=== PATIENT | male | born 1960 | race Caucasian/White ===

== ENCOUNTER 2020-03-01 15:05 | Inpatient (IN) | payer OTHER, MEDICAID, SELFPAY ==
[~2020-03-01] VITALS: Ht 172.7 cm; Wt 86.2 kg
[~2020-03-01 15:05] MED LIST: CAT.1 PO; CEFAZOLIN 1 GM IVPB PREMIX 50 ML IV ONE; CLON0.5T4 PO; DEPAKOTE DR PO; LIDOCAINE 1% 10 MG/ML, 20 ML MDV INJ ONE; LIP40 PO; LOSA25TA3 PO; METO25TA6 PO; MIDAZOLAM HCL 5 MG/5 ML VIAL IVP ONE; MULT-1089 PO; NEPH PO; NOR10 PO; NS 1000 ML IV.SOLN IV ONE; PHO667 PO; PLAVIX PO; PROPOFOL 200MG/ 20ML VIAL (DIPRIVAN) IV ONE; REN800 PO; SER25 PO; SEVOFLURANE 15 MIN GAS INH ONE; VITD400 PO; ZETIA PO; fentaNYL CITRATE/PF 100 MCG/2 ML AMP IVP ONE
[2020-03-01 15:19] VITALS: BP_SYST 160
--- NOTE | 2020-03-01 15:19 | NUR ---
Patient to ER bed 07 to gown for evaluation. Side rails up. Report given to FLACO Hsu
--- NOTE | 2020-03-01 15:30 | NUR ---
Patient presented to ER C/O abnormal labs. Patient BIB BLS to ER, A&Ox3, afebrile, skin pink and warm, denies pain, denies N/V/D. Per EMS Patient sent by Dr. Ang for emergent dialysis
[2020-03-01 16:15] LABS: BASOPHILS % (AUTO) 0.3 % (0.0-2.0); EOSINOPHILS # (AUTO) 0.2 K/uL (0.0-0.4); EOSINOPHILS % (AUTO) 2.2 % (0.0-4.0); LYMPHOCYTES # (AUTO) 1.7 K/uL (1.0-5.5); LYMPHOCYTES % (AUTO) 20.1 % (20.5-51.5); MEAN CORPUSCULAR HEMOGLOBIN 34 pg (27-31); MEAN CORPUSCULAR HGB CONC 35 % (32-36); MEAN CORPUSCULAR VOLUME 97 fL (79.0-98.0); NEUTROPHILS # (AUTO) 5.5 K/uL (1.8-7.7); NEUTROPHILS % (AUTO) 65.4 % (40.0-70.0); PLATELET COUNT (AUTO) 133 K/uL (130-430); RED CELL DISTRIBUTION WIDTH 14.4 % (9.0-15.0); WHITE BLOOD COUNT (AUTO) 8.3 K/uL (4.8-10.8)
--- NOTE | 2020-03-01 16:15 | NUR ---
# 20 gauge angiocath placed to LEFT AC. Use of asceptic technique. Opsite placed over site. Blood return noted. Blood for lab drawn from site. Flushed with 10 cc of normal saline. No evidence of infiltration noted. Patient tolerated well.
--- NOTE | 2020-03-01 16:35 | NUR ---
PT YELLING, REORIENTED
[2020-03-01 16:37] LABS: HEMOGLOBIN 6.5 g/dL (14.0-18.0)
[2020-03-01 16:38] LABS: HEMATOCRIT 18.5 % (36-54)
--- NOTE | 2020-03-01 16:45 | NUR ---
ER at bedside examining patient.
--- NOTE | 2020-03-01 16:48 | NUR ---
PT continues to yell, agressive and cursing. re-oriented. Pt states "I don't want to be here today"
[2020-03-01] MEDS ORDERED: LORazepam 2 MG/ML VIAL IVP ONE (17:00)
[2020-03-01 17:19] LABS: POTASSIUM 5.3 mmol/L (3.5-5.1)
[2020-03-01 17:31] LABS: TOTAL BILIRUBIN 0.2 mg/dL (0.0-1.0)
[2020-03-01 17:32] LABS: ALBUMIN 2.3 g/dL (3.4-4.8)
[2020-03-01 17:33] LABS: CREATININE 13.28 mg/dL (0.55-1.30)
--- NOTE | 2020-03-01 17:50 | NUR ---
TELE BED REQUESTED TEZ SAM
[2020-03-01] MEDS ORDERED: SODI650T PO (18:14)
[2020-03-01] MEDS ORDERED: VITD2000 PO (18:14)
--- NOTE | 2020-03-01 19:00 | NUR ---
Medication reconciliation completed with information provided by DRAGAN SAM. Any prior medication reconciliation on file was reviewed and corrected.
--- NOTE | 2020-03-01 19:08 | NUR ---
REPORT TO KENAN SAM
--- NOTE | 2020-03-01 19:16 | NUR ---
REPORT RECEIEVED FROM FLACO CHURCHILL FOR CONTINUING CARE
--- NOTE | 2020-03-01 20:23 | NUR ---
APatient will be admitted to care of DR. PENNINGTON. Admitted to TELE unit. Will go to room 105A. Belongings list completed. Complete and up to date summary report printed. SBAR report to be given at bedside with opportunity for questions.
--- NOTE | 2020-03-01 20:42 | NUR ---
ADMISSION NOTE Received patient from ER via evette, received report from FLACO Carrera. Patient admitted with diagnosis of Renal Failure. Patient oriented to hospital routine, call light, toileting and safety-patient verbalized understanding.
[2020-03-01 20:56] VITALS: BP_SYST 197
[2020-03-01] MEDS: QUEtiapine FUMARATE 25 MG TABLET PO SCH (21:57)
--- NOTE | 2020-03-01 22:00 | NUR ---
Initial RN notes Received pt from ED. Pt AAOx3, afebrile. No s/s distress noted. IV saline lock L. AC 20G clear and patent. Pt provided w/ HS sandwich and ate well. Oriented to call light use. Bed low, locked, siderails up x3, bed alarm on. Call light within reach. To monitor.
[2020-03-01] MEDS: ATORVASTATIN 20 MG TABLET PO SCH (22:01)
[2020-03-01] MEDS: METOPROLOL TARTRATE 25 MG TABLET PO SCH (22:01)
[2020-03-01] MEDS: SODIUM BICARBONATE 650 MG TABLET PO SCH (22:02)
[2020-03-01 22:30] VITALS: BP_SYST 152
--- NOTE | 2020-03-01 22:58 | NUR ---
Called Called and spoke w/ Dr. Reid re H/H 6.5/18.5 and K+ 5.3. Order rec'd for Type & Screen and wait in AM. Will enter order.
--- NOTE | 2020-03-01 23:05 | NUR ---
Bathroom Pt assisted to bathroom, pt voided. Pt asking for salad, informed pt cafeteria is closed already. Call light within reach. Bed low, locked, siderails up, alarm on. To monitor.
--- NOTE | 2020-03-01 23:57 | NUR ---
Consultation Paged Reason for Consultation: Renal Failure Was consult called: Y Person who was notified: Madhavi Consulting Physician: Dr. Delaney Ordering Physician: Dr. Ray
--- NOTE | 2020-03-02 02:18 | NUR ---
Rounds Pt asleep, respirations even and unlabored. Call light within reach. Bed low, locked, siderails up x3, alarm on. To monitor.
--- NOTE | 2020-03-02 04:00 | NUR ---
Bathroom Pt awake, assisted pt to the bathroom. Pt voided. Assisted back to bed. Pt oriented to time. Bed low, locked, siderails up x3, alarm on. To monitor.
--- NOTE | 2020-03-02 05:30 | NUR ---
Closing notes Pt awake, alert, no s/s distress. IV saline locked L. AC clear and patent. Call light within reach. Bed maintained low, locked, siderails up x3, alarm on. Safety maintained. To monitor.
[2020-03-02] MEDS: SODIUM BICARBONATE 650 MG TABLET PO SCH ×2 (06:05→14:00)
[2020-03-02 07:50] VITALS: BP_SYST 186
--- NOTE | 2020-03-02 08:00 | NUR ---
am notes pt a/ox1. denies any karen or orther discomfort. res even and unlabored. assisted to bathroom. safety and fall precautions in place. call light within reach. bed in low and locked positions pt eating breakfast not in acute distress. will continue tomonitor.
[2020-03-02] MEDS: CALCIUM ACETATE 667 MG CAP PO SCH ×3 (08:42→18:00)
[2020-03-02] MEDS: SEVELAMER CARBONATE 800 MG TABLET PO SCH ×3 (08:42→18:00)
[2020-03-02] MEDS: QUEtiapine FUMARATE 25 MG TABLET PO SCH (08:43)
[2020-03-02] MEDS: METOPROLOL TARTRATE 25 MG TABLET PO SCH (08:43)
[2020-03-02] MEDS: amLODIPine BESYLATE 10 MG TABLET PO SCH (08:43)
[2020-03-02] MEDS: LOSARTAN POTASSIUM 25 MG TABLET PO SCH (08:44)
[2020-03-02] MEDS ORDERED: EPOETIN ALFA 20,000 UNITS/ML VIAL SUBCUT ONE (09:15)
[2020-03-02] MEDS ORDERED: TUBERCULIN,PURIF.PROT.DERIV. 0.1 ML SYR ID ONE (09:15)
[2020-03-02] MEDS ORDERED: FERROUS SULFATE 325 MG TABLET.DR PO ONE (09:30)
--- NOTE | 2020-03-02 09:45 | NUR ---
md navast dr villeda and dr zaldivar at bed side. pt got upset after talking with dr zaldivar.
--- NOTE | 2020-03-02 09:54 | NUR ---
CONSULT SURGERY HD CATHETER PATTI HUBBARD [phone] S/W [facility] OFFICE
--- NOTE | 2020-03-02 10:24 | NUR ---
CONSULT PSYCH [address] DR BOLAND [phone] [place] FAXED TO OFFICE [phone] S/W GIBRAN HERNANDEZ
--- NOTE | 2020-03-02 12:34 | NUR ---
md visit dr villeda here informed that pt is refusing vitals signs and his medications.
--- NOTE | 2020-03-02 13:34 | NUR ---
HIGH ALERT NOTE: Called Dr. CONDE back at [phone] identified within the medical roster to verify physician authenticity FOR HEPARIN ORDER.
[2020-03-02] MEDS ORDERED: HEPARIN SODIUM,PORCINE 5,000 UNITS/ML VIAL IV ONE (13:45)
[2020-03-02] MEDS: FERROUS SULFATE 325 MG TABLET.DR PO SCH (15:00)
[2020-03-02 15:33] LABS: PLATELET COUNT (AUTO) 121 K/uL (130-430); RED CELL DISTRIBUTION WIDTH 14.1 % (9.0-15.0); WHITE BLOOD COUNT (AUTO) 7.3 K/uL (4.8-10.8)
[2020-03-02 15:37] LABS: BASOPHILS # (AUTO) 0.1 K/uL (0.0-0.2); BASOPHILS % (AUTO) 0.8 % (0.0-2.0); EOSINOPHILS # (AUTO) 0.3 K/uL (0.0-0.4); EOSINOPHILS % (AUTO) 3.5 % (0.0-4.0); LYMPHOCYTES # (AUTO) 2.1 K/uL (1.0-5.5); LYMPHOCYTES % (AUTO) 28.6 % (20.5-51.5); MEAN CORPUSCULAR HEMOGLOBIN 33 pg (27-31); MEAN CORPUSCULAR HGB CONC 34 % (32-36); MEAN CORPUSCULAR VOLUME 97 fL (79.0-98.0); MONOCYTES % (AUTO) 13.7 % (1.7-9.3); NEUTROPHILS # (AUTO) 3.9 K/uL (1.8-7.7); NEUTROPHILS % (AUTO) 53.4 % (40.0-70.0)
[2020-03-02 15:45] VITALS: BP_SYST 157
[2020-03-02 15:46] LABS: RED BLOOD CELL COUNT(AUTO) 1.83 MIL/uL (4.2-6.2)
[2020-03-02 15:47] LABS: CALCIUM 8.3 mg/dL (8.4-11.0)
[2020-03-02 15:49] LABS: HEMATOCRIT 17.7 % (36-54)
[2020-03-02 15:52] LABS: ALBUMIN 2.2 g/dL (3.4-4.8); TOTAL BILIRUBIN 0.2 mg/dL (0.0-1.0)
[2020-03-02 16:02] LABS: POTASSIUM 6.4 mmol/L (3.5-5.1)
[2020-03-02 16:05] LABS: CREATININE 14.05 mg/dL (0.55-1.30)
--- NOTE | 2020-03-02 16:26 | NUR ---
PAGED DR HANNAH PENNINGTON SPOKE TO PITO
--- NOTE | 2020-03-02 16:47 | NUR ---
DR YOUNG PAGED DR MENENDEZ SPOKE TO
[2020-03-02] MEDS ORDERED: INSULIN REGULAR, HUMAN 100 UNITS/ML, 10 ML VIAL IVP ONE (17:00)
[2020-03-02] MEDS ORDERED: SODIUM BICARBONATE 8.4% JECT 50 MEQ/50 ML SYRINGE IVP ONE (17:00)
[2020-03-02] MEDS ORDERED: DEXTROSE 50% JECT 50 ML DISP.SYRIN IVP ONE (17:00)
[2020-03-02] MEDS: CLOPIDOGREL BISULFATE 75 MG TABLET PO SCH (17:00)
--- NOTE | 2020-03-02 17:05 | NUR ---
called called dr zaldivar and notified k 6.3 ,. new order received called out. pt stable not in acute distress.
--- NOTE | 2020-03-02 17:15 | NUR ---
called dl ley conservator [phone] left voice mail. called orther no [phone] it was continue ringing.did not go to voice mail
--- NOTE | 2020-03-02 18:00 | NUR ---
transferred to or pt transferred to or in stab le condition. report given to yayo.by charge nurse bertha
[2020-03-02] MEDS ORDERED: MIDAZOLAM HCL 5 MG/5 ML VIAL IVP ONE (18:30)
[2020-03-02] MEDS ORDERED: fentaNYL CITRATE 250 MCG/5 ML AMP IV ONE (18:30)
[2020-03-02] MEDS ORDERED: NS 100 ML BAG IV ONE (18:30)
[2020-03-02] MEDS ORDERED: METOCLOPRAMIDE HCL 10 MG/2 ML VIAL IVP ONE (18:30)
[2020-03-02] MEDS ORDERED: LIDOCAINE 1% 10 MG/ML, 20 ML MDV INJ ONE (18:30)
[2020-03-02] MEDS ORDERED: ONDANSETRON HCL 4 MG/2 ML VIAL IVP ONE (18:30)
[2020-03-02] MEDS ORDERED: NS 50 ML BAG IV ONE (18:30)
[2020-03-02] MEDS ORDERED: NS IRRIG SOLN 1000 ML IR ONE (18:30)
[2020-03-02] MEDS ORDERED: HEPARIN SODIUM, PORCINE 10,000 UNITS/ 10 ML VIAL MC ONE (18:30)
[2020-03-02 19:06] LABS: CALCIUM 8.2 mg/dL (8.4-11.0); POTASSIUM 5.6 mmol/L (3.5-5.1)
[2020-03-02 19:16] LABS: CREATININE 14.04 mg/dL (0.55-1.30)
[2020-03-02] MEDS ORDERED: NACL 0.9% 1,000 ML IV SCH (19:45)
[2020-03-02] MEDS ORDERED: HYDROmorphone 1 MG INJ. 1 MG/ML AMPUL IVP PRN (19:45)
[2020-03-02] MEDS ORDERED: ONDANSETRON HCL 4 MG/2 ML VIAL IVP PRN (19:45)
[2020-03-02] MEDS ORDERED: LORazepam 2 MG/ML VIAL IVP PRN (20:00)
--- NOTE | 2020-03-02 20:00 | NUR ---
HIGH ALERT NOTE: Called Dr. Delaney back at [phone] identified within the medical roster to verify physician authenticity for Ativan 1mg IVP order.
--- NOTE | 2020-03-02 20:15 | NUR ---
Opening notes/Back from PACU Received pt AAOx3, no c/o pain, no distress noted. S/P right IJ dillon catheter placement. Dressing R. IJ c/d/i. Pt received 1 unit PRBC in PACU. L. hand 18G IV salined locked clear and patent. Pt assisted to the bathroom and pt voided. Call light within reach. Pt provided bedtime snack per pt request. Bed low, locked, siderails up x3, alarm on. To monitor.
--- NOTE | 2020-03-02 20:49 | NUR ---
Called and spoke w/ Called and spoke with Dr. Paredes and received order for Ok to use right IJ catheter for hemodialysis.
--- NOTE | 2020-03-02 20:53 | NUR ---
Hemodialysis HD nurse at bedside. Pt stable condition. Rec'd t/o from Dr. Reggie archibald to use right IJ catheter for dialysis.
--- NOTE | 2020-03-02 23:00 | NUR ---
Dialysis finished 3L out per HD nurse. R. IJ catheter dressing C/D/I.
[2020-03-03] MEDS: ATORVASTATIN 20 MG TABLET PO SCH ×2 (00:42→21:54)
[2020-03-03] MEDS: SODIUM BICARBONATE 650 MG TABLET PO SCH ×4 (00:42→21:51)
[2020-03-03] MEDS: FERROUS SULFATE 325 MG TABLET.DR PO SCH ×5 (00:42→21:51)
[2020-03-03] MEDS: QUEtiapine FUMARATE 25 MG TABLET PO SCH ×3 (00:43→21:51)
[2020-03-03] MEDS: METOPROLOL TARTRATE 25 MG TABLET PO SCH ×3 (00:44→21:51)
--- NOTE | 2020-03-03 03:15 | NUR ---
Rounds/Bathroom Pt awake, assisted to bathroom, pt voided. Rt IJ catheter dressing C/D/I. Call light within reach. Bed low, locked, siderails up x3, alarm on. To monitor.
[2020-03-03 05:49] VITALS: BP_SYST 167
--- NOTE | 2020-03-03 06:15 | NUR ---
Closing notes Pt alert, awake, no c/o pain, no distress noted. Right IJ dillon catheter dressing c/d/i. L. hand 18G IV saline locked clear and patent. Encouraged pt to use call light for nurse, call light within reach. Bed low, locked, siderails up x3, alarm on. To endorse to Am nurse.
--- NOTE | 2020-03-03 07:39 | NUR ---
Opening Note received bedside SBAR report from night shift supervisor RN, patient resting in bed, respirations even and unlabored on room air, no acute distress noted, room close to nurses station, educated patient on use of call light and asked to call for assistance, patient verbalized understanding, call light in reach, bed in low and locked position, bed alarm on.
[2020-03-03 08:00] VITALS: BP_SYST 158
[2020-03-03] MEDS: CALCIUM ACETATE 667 MG CAP PO SCH ×4 (08:00→17:24)
[2020-03-03] MEDS: SEVELAMER CARBONATE 800 MG TABLET PO SCH ×4 (08:00→17:24)
[2020-03-03] MEDS: amLODIPine BESYLATE 10 MG TABLET PO SCH (08:14)
[2020-03-03] MEDS: LOSARTAN POTASSIUM 25 MG TABLET PO SCH (08:15)
--- NOTE | 2020-03-03 08:40 | NUR ---
Nutrition Update Maxi scale 18 noted. Pt admitted for Renal Failure Diet: Regular, Renal Standard, Mechanical Soft Diet BMI: 28.9 kg/m2 RD to follow per nutrition care standards.
--- NOTE | 2020-03-03 09:20 | NUR ---
Breakfast patient requesting additional breakfast food, called dietary, dietary provided patient with additional breakfast food within patients diet order, patient sitting up in bed eating breakfast, tolerating well.
[2020-03-03 09:56] LABS: BASOPHILS # (AUTO) 0.1 K/uL (0.0-0.2); BASOPHILS % (AUTO) 1.1 % (0.0-2.0); EOSINOPHILS # (AUTO) 0.2 K/uL (0.0-0.4); HEMATOCRIT 24.3 % (36-54); HEMOGLOBIN 8.3 g/dL (14.0-18.0); LYMPHOCYTES # (AUTO) 1.8 K/uL (1.0-5.5); MEAN CORPUSCULAR HEMOGLOBIN 32 pg (27-31); MEAN CORPUSCULAR HGB CONC 34 % (32-36); MEAN CORPUSCULAR VOLUME 94 fL (79.0-98.0); MONOCYTES # (AUTO) 1.3 K/uL (0.0-1.0); MONOCYTES % (AUTO) 15.3 % (1.7-9.3); NEUTROPHILS # (AUTO) 4.8 K/uL (1.8-7.7); NEUTROPHILS % (AUTO) 58.6 % (40.0-70.0); PLATELET COUNT (AUTO) 143 K/uL (130-430); RED BLOOD CELL COUNT(AUTO) 2.59 MIL/uL (4.2-6.2); RED CELL DISTRIBUTION WIDTH 15.4 % (9.0-15.0); WHITE BLOOD COUNT (AUTO) 8.2 K/uL (4.8-10.8)
[2020-03-03 09:58] LABS: CALCIUM 8.8 mg/dL (8.4-11.0); POTASSIUM 5.4 mmol/L (3.5-5.1)
[2020-03-03 10:02] LABS: ALBUMIN 2.4 g/dL (3.4-4.8); TOTAL BILIRUBIN 0.3 mg/dL (0.0-1.0)
--- NOTE | 2020-03-03 10:15 | NUR ---
Ambulating bed alarm heard, patient out of bed without calling for assistance, RN assisted immediately, patient shuffles with unsteady gait, patient ambulated to bathroom with assistance, patient voided x1, patient ambulated back to bed with assistance, patient resting in bed, reinforced fall prevention education, educated patient on use of call light and encouraged patient to call for assistance, patient verbalized understanding, call light in reach, bed in low and locked position, bed alarm on, room close to nurses station.
[2020-03-03 10:17] LABS: CREATININE 10.92 mg/dL (0.55-1.30)
--- NOTE | 2020-03-03 10:59 | NUR ---
Office of the public Guardian YVON Simpson from the office of the public guardian. Per Miss Simpson, Any procedure that needs consent that is not included in the court order, [facility] emergrncy procedure can be use
[2020-03-03 11:33] VITALS: BP_SYST 122
--- NOTE | 2020-03-03 12:12 | NUR ---
Hemodialysis handle maker Yared at bedside for start of hemodialysis, informed him of BP medication that were given this morning, understanding verbalized, handle maker starting hemodialysis, patient resting in bed, respirations even and unlabored on room air, no acute distress noted.
--- NOTE | 2020-03-03 12:41 | NUR ---
Dietitian Recommendations *Recommend continue Regular, Renal Standard, Mechanical Soft Diet Please see Nutrition Assessment for details. ERMA NELSON
--- NOTE | 2020-03-03 14:38 | NUR ---
Hemodialysis hemodialysis completed by radiologic technologist chief, 1.2L out, dialysis site dillon cath to right IJ clean, dry, and intact, no bleeding noted, per radiologic technologist chief Yared the dillon catheter is not working properly, he informed Dr. Delaney, per Dr. Delaney he will arrange for placement of permacath, patient resting in bed, respirations even and unlabored on room air, no acute distress noted, reinforced fall prevention and education, educated patient on use of call light and asked to call for assistance, patient verbalized understanding, call light in reach, bed in low and locked position, bed alarm on.
[2020-03-03 14:45] VITALS: BP_SYST 121
[2020-03-03 15:49] VITALS: BP_SYST 126
--- NOTE | 2020-03-03 16:50 | NUR ---
Bathroom bed alarm heard, patient attempting to ambulate without assistance, assisted patient immediately, patient shuffles with unsteady gait at times, assisted patient to the bathroom, patient voided x1, assisted patient back to bed, patient resting in bed, reinforced education on fall prevention and patient safety, patient verbalized understanding, encouraged patient to call for assistance, patient verbalized understanding, call light in reach, bed in low and locked position, bed alarm on, room close to nurses station.
[2020-03-03] MEDS: CLOPIDOGREL BISULFATE 75 MG TABLET PO SCH (17:23)
--- NOTE | 2020-03-03 19:17 | NUR ---
Closing Note bedside SBAR report given to receiving RN, patient resting in bed, respirations even and unlabored on room air, no acute distress noted, room close to nurses station, educated patient on use of call light and asked to call for assistance, patient verbalized understanding, call light in reach, bed in low and locked position, bed alarm on, care endorsed to steward/stewardess night RN.
[2020-03-03 20:00] VITALS: BP_SYST 155
--- NOTE | 2020-03-03 20:39 | NUR ---
OPENING NOTES: Received report from [facility] nurse. He is laying in bed alert and oriented with no s/s of distress or discomfort. He does not have any concerns at this time. Dialysis noted on right upper chest, dry and intact dressing. Patient has unlabored breathing on room air. Ensured all safety precautions. Bed is locked and in the lowest position with alarm on, call light within reach. Addendum: 03/03/20 at 2042 by Jess Russell RN ADDENDUM TO TIME. RECEIVED REPORT AT 0.
--- NOTE | 2020-03-03 21:45 | NUR ---
MEDICATION ADMINISTRATION: Patient is laying in bed with no s/s of distress or discomfort. He does not have any complaints of pain or discomfort. Medications were administered as ordered, he tolerated well. Patient is requesting to have jello and a sandwich which were provided. Also assisted patient to the bathroom at this time. He has steady gait but shuffles his feet when walking. Assisted patient back to bed and reminded patient to use call light when needing to get out of bed, he verbalized understanding. Bed is in the lowest position with alarm on. Call light within reach. Will continue to monitor patient.
--- NOTE | 2020-03-04 | NUR ---
RN ROUNDS: Patient is laying in bed and appears to be asleep. He does not have any s/s of distress or discomfort. Will continue to monitor patient.
--- NOTE | 2020-03-04 02:00 | NUR ---
RN ROUNDS: Patient is in bed and continues to be asleep. He has unlabored breathing on room air. Bed is in the lowest position with alarm on, call light within reach. Will continue to monitor patient.
[2020-03-04 04:06] LABS: HEPATITIS B SURFACE AG Negative (Negative)
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
[2020-03-04] MEDS: SODIUM BICARBONATE 650 MG TABLET PO SCH ×3 (06:46→20:55)
[2020-03-04 07:46] LABS: CALCIUM 8.1 mg/dL (8.4-11.0); POTASSIUM 5.5 mmol/L (3.5-5.1)
--- NOTE | 2020-03-04 07:46 | NUR ---
CLOSING NOTE: Patient is laying in bed alert and oriented with no s/s of distress or discomfort. He does not have any concerns at this time. Bogdan right upper chest, dry and intact dressing. Patient has unlabored breathing on room air. All needs were met throughout shift. Will endorse to dayshift nurse. Ensured all safety precautions. Bed is locked and in the lowest position with alarm on, call light within reach.
[2020-03-04 07:50] VITALS: BP_SYST 187
[2020-03-04 07:57] LABS: CREATININE 10.42 mg/dL (0.55-1.30)
[2020-03-04] MEDS: QUEtiapine FUMARATE 25 MG TABLET PO SCH ×2 (08:25→20:55)
[2020-03-04] MEDS: FERROUS SULFATE 325 MG TABLET.DR PO SCH ×3 (08:25→20:55)
[2020-03-04] MEDS: SEVELAMER CARBONATE 800 MG TABLET PO SCH ×3 (08:25→17:15)
[2020-03-04] MEDS: CALCIUM ACETATE 667 MG CAP PO SCH ×3 (08:25→17:15)
[2020-03-04] MEDS: amLODIPine BESYLATE 10 MG TABLET PO SCH (08:26)
[2020-03-04] MEDS: LOSARTAN POTASSIUM 25 MG TABLET PO SCH (08:27)
[2020-03-04] MEDS: METOPROLOL TARTRATE 25 MG TABLET PO SCH ×2 (08:27→20:56)
[2020-03-04] MEDS ORDERED: SODIUM POLYSTYRENE SULFONATE 15 GM/60 ML UDBTL PO ONE (08:45)
--- NOTE | 2020-03-04 10:34 | NUR ---
REQUEST UNIT SEC TO PAGE DR CONDE FOR PERMACATH PLACEMENT.
--- NOTE | 2020-03-04 11:05 | NUR ---
DR SOTELO BACKMD MADE AWARE THAT DR DURAN WANTS HIM TO PLACE A PERMACATH, DR CONDE SAID HE WILL TRY TO DO IT TOMORROW.
[2020-03-04 12:00] VITALS: BP_SYST 156
[2020-03-04 14:40] LABS: HEPATITIS C VIRUS AB 7.6 s/co ratio (0.0-0.9)
[2020-03-04 16:19] VITALS: BP_SYST 156
[2020-03-04] MEDS: CLOPIDOGREL BISULFATE 75 MG TABLET PO SCH (17:15)
--- NOTE | 2020-03-04 18:33 | NUR ---
closing notes, pt has been stable the whole shift, no c/o pain, ppd test is negative, pt took all his am meds, sometimes refused them but with some encouragement took them anyway. pt wanted to go back to his facility , explained to pt that he needs permacath place in the morning and after that he can have dialysis and then can be send back, pt needs futher instruction. pt needs to be npo after midnight for permcath placement. will endorse to night nurse.
--- NOTE | 2020-03-04 19:30 | NUR ---
CHANGE OF SHIFT; pt. sleeping when received, no distress. pt. room close to nurses station. call light at bedside.
[2020-03-04 20:15] VITALS: BP_SYST 173
--- NOTE | 2020-03-04 20:15 | NUR ---
NOTES: pt. awakened, VS checked. pt. asking for food, given sandwich ,jello and juice. informed about possible permacath insertion and will be NPO after midnight. rt. jug dillon cath intact with dressing. 2 IV sites on left arm. on cardiac cath technician and shows sinus rhythm. able to move all extremities. denies any pain nor discomfort. on fall risk precaution.
[2020-03-04] MEDS: ATORVASTATIN 20 MG TABLET PO SCH (20:55)
--- NOTE | 2020-03-04 21:00 | NUR ---
NOTES: due medications taken well, able to swallow ok.
--- NOTE | 2020-03-04 22:44 | NUR ---
NOTES: pt. got out of bed without calling, able to ambulate to restroom and back to bed, bed alarm on, bed in low position. pt. room close to nurses station. Addendum: 03/04/20 at 2252 by Pema Resendiz RN Late entry; asking for food again , wants ice cream, no available ,pt. informed. given apple juice, had already some pudding.
--- NOTE | 2020-03-05 00:01 | NUR ---
NOTES: pt. checked and sleeping. kept NPO for schedule permacath placement today.
--- NOTE | 2020-03-05 00:30 | NUR ---
NOTES: pt. refused VS per RADIOLOGY TECHNOLOGIST Karla.
--- NOTE | 2020-03-05 02:40 | NUR ---
NOTES: pt. up and ambulated to the restroom. bed alarm went off. no distress, able to go back to bed and repositioned self. bed alarm turn back on.
--- NOTE | 2020-03-05 04:00 | NUR ---
NOTES: pt. up and ambulated to the restroom. bed alarm on.
--- NOTE | 2020-03-05 06:12 | NUR ---
NOTES: Dr. Delaney here, updated on pt. status and schedule placement of permacath @ 2 pm. pre op check list initiated. court order for in the chart, Dr. Delaney said it is sufficient for the consent, made aware of BP refusal at midnight.
--- NOTE | 2020-03-05 06:44 | NUR ---
CLOSING NOTES; pt. resting, arousable. kept NPO. IV lock ,flushed and patent. on sinus rhythm. endorsed to incoming shift. for placement of permacath for hemodialysis. rt. dillon cath intact. for further care and assistance. call light at bedside.
[2020-03-05 07:08] LABS: BASOPHILS # (AUTO) 0.1 K/uL (0.0-0.2); BASOPHILS % (AUTO) 0.6 % (0.0-2.0); EOSINOPHILS # (AUTO) 0.4 K/uL (0.0-0.4); EOSINOPHILS % (AUTO) 4.7 % (0.0-4.0); HEMATOCRIT 22.9 % (36-54); HEMOGLOBIN 7.8 g/dL (14.0-18.0); LYMPHOCYTES # (AUTO) 1.8 K/uL (1.0-5.5); LYMPHOCYTES % (AUTO) 20.4 % (20.5-51.5); MEAN CORPUSCULAR HEMOGLOBIN 33 pg (27-31); MEAN CORPUSCULAR HGB CONC 34 % (32-36); MEAN CORPUSCULAR VOLUME 95 fL (79.0-98.0); MONOCYTES # (AUTO) 1.2 K/uL (0.0-1.0); MONOCYTES % (AUTO) 13.9 % (1.7-9.3); NEUTROPHILS # (AUTO) 5.3 K/uL (1.8-7.7); NEUTROPHILS % (AUTO) 60.4 % (40.0-70.0); PLATELET COUNT (AUTO) 140 K/uL (130-430); RED BLOOD CELL COUNT(AUTO) 2.41 MIL/uL (4.2-6.2); RED CELL DISTRIBUTION WIDTH 15.1 % (9.0-15.0); WHITE BLOOD COUNT (AUTO) 8.8 K/uL (4.8-10.8)
[2020-03-05 07:22] LABS: ALBUMIN 2.4 g/dL (3.4-4.8); CALCIUM 8.2 mg/dL (8.4-11.0); POTASSIUM 5.7 mmol/L (3.5-5.1); TOTAL BILIRUBIN 0.2 mg/dL (0.0-1.0)
[2020-03-05 08:00] VITALS: BP_SYST 143
[2020-03-05 08:00] LABS: CREATININE 11.35 mg/dL (0.55-1.30)
[2020-03-05] MEDS: SEVELAMER CARBONATE 800 MG TABLET PO SCH ×3 (08:00→18:00)
[2020-03-05] MEDS: CALCIUM ACETATE 667 MG CAP PO SCH ×3 (08:00→18:00)
--- NOTE | 2020-03-05 08:00 | NUR ---
initial notes rec patient awake alert pt is npo for sx at 1400 today . npo maintained. resp easy and unlabored. no sob noted. bed to the lowest position and side rails up and locked. call light within reached.pt with rij dillon cath for dialysis. will continue to monitor patient.
[2020-03-05] MEDS: QUEtiapine FUMARATE 25 MG TABLET PO SCH ×2 (09:00→21:10)
[2020-03-05] MEDS: LOSARTAN POTASSIUM 25 MG TABLET PO SCH (09:00)
[2020-03-05] MEDS: FERROUS SULFATE 325 MG TABLET.DR PO SCH ×3 (09:00→21:10)
[2020-03-05] MEDS: METOPROLOL TARTRATE 25 MG TABLET PO SCH ×2 (09:00→21:10)
[2020-03-05] MEDS: amLODIPine BESYLATE 10 MG TABLET PO SCH (09:00)
--- NOTE | 2020-03-05 10:00 | NUR ---
rounds dialysis in progress. no sob noted. bed to the lowest position and side rails up and locked. call light within reached and close to the nurses station.
--- NOTE | 2020-03-05 11:15 | NUR ---
Discharge Planning: WIP faxed pt referral to [facility] (f [phone] p [phone]) patient out patient dialysis information [address] [address], P#[phone]. Patient Chair time Sun Ruma lu 4:15pm to 8:15pm, fist day will be Sunday03/09/2020. DCP made [facility] aware transportation needs to be scheduled for continuos visits. DCP to follow up. Addendum: 03/05/20 at 1432 by Lorenza Ivy DP DCP followed up with pt referral to [facility] (f [phone] p [phone]) admissions is waiting for the DON response. Addendum: 03/05/20 at 1434 by Lorenza Ivy DP JOSEF gave CM number [phone] to [facility] admissions, JOSEF made CM aware. Addendum: 03/05/20 at 1502 by Lorenza Ivy DP JOSEF spoke to Pratibha at [facility] (f [phone] p [phone]) pt accepted. When nurse calls for report a room will be give, number to report [phone]. JOSEF made CM aware.
[2020-03-05 12:00] VITALS: BP_SYST 154
--- NOTE | 2020-03-05 14:15 | NUR ---
rounds pt was picked up for surgery via bed. npo was maintained. no osb noted. call light within reached.
[2020-03-05] MEDS ORDERED: MEPERIDINE HCL/PF 25 MG/ML DISP.SYRIN IVP PRN (15:15)
[2020-03-05] MEDS ORDERED: NACL 0.9% 1,000 ML IV SCH (15:15)
[2020-03-05] MEDS ORDERED: HYDROmorphone 1 MG INJ. 1 MG/ML AMPUL IVP PRN ×2 (15:15)
[2020-03-05] MEDS ORDERED: ONDANSETRON HCL 4 MG/2 ML VIAL IVP PRN (15:15)
[2020-03-05] MEDS ORDERED: MIDAZOLAM HCL 2 MG/2 ML VIAL (VERSED) IVP PRN (15:15)
--- NOTE | 2020-03-05 16:30 | NUR ---
rounds pt back from rr s/p placement of tunneled catheter. noted with a weight on the catheter. no bleeding noted. dr dale was called to find out for how long the weight will be.
[2020-03-05] MEDS: CLOPIDOGREL BISULFATE 75 MG TABLET PO SCH (17:00)
--- NOTE | 2020-03-05 19:20 | NUR ---
CHANGE OF SHIFT; pt. resting, watching tv when received. S/P placement of perma cath on rt. upper chest today.for hemodialysis access. pt. room close to nurses station, on fall risk. instructed to call if help needed. wants food.
[2020-03-05 20:00] VITALS: BP_SYST 149
--- NOTE | 2020-03-05 20:00 | NUR ---
NOTES: pt. denies any discomfort. IV lock on left arm.hand. refused IVF ordered post procedure. VS checked. cardiac technician shows sinus rhythm with BBB. moves all extremities. reminded to call if getting out of bed to go restroom. speech not clear but able to communicate verbally.
[2020-03-05] MEDS: ATORVASTATIN 20 MG TABLET PO SCH (21:10)
--- NOTE | 2020-03-05 21:10 | NUR ---
NOTES: due po meds given. had 2 servings of turkey sandwich, jello and pudding.
--- NOTE | 2020-03-05 23:00 | NUR ---
NOTES: pt. still awake, pretty quiet in is room. condition observed.
--- NOTE | 2020-03-06 01:30 | NUR ---
NOTES: pt. checked, sleeping at this time. bed alarm turn on for safety.
[2020-03-06 02:00] VITALS: BP_SYST 152
--- NOTE | 2020-03-06 03:00 | NUR ---
NOTES: pt. been sleeping, no distress. continue to monitor.
--- NOTE | 2020-03-06 05:00 | NUR ---
NOTES: pt. got out of bed and ambulated, FIXING CARPENTER stand by. no complaints manifested.
--- NOTE | 2020-03-06 06:43 | NUR ---
CLOSING NOTES; pt. went back to sleep. IV lock intact. permacath on rt. subclavian intact. for further care and assist. fall risk. call light within reach. possible discharge today.
[2020-03-06] MEDS: CALCIUM ACETATE 667 MG CAP PO SCH ×2 (08:43→12:24)
[2020-03-06] MEDS: QUEtiapine FUMARATE 25 MG TABLET PO SCH (08:43)
[2020-03-06] MEDS: LOSARTAN POTASSIUM 25 MG TABLET PO SCH (08:43)
[2020-03-06] MEDS: METOPROLOL TARTRATE 25 MG TABLET PO SCH (08:43)
[2020-03-06] MEDS: SEVELAMER CARBONATE 800 MG TABLET PO SCH ×2 (08:43→12:24)
[2020-03-06] MEDS: FERROUS SULFATE 325 MG TABLET.DR PO SCH (08:43)
[2020-03-06 08:44] VITALS: BP_SYST 166
[2020-03-06] MEDS: amLODIPine BESYLATE 10 MG TABLET PO SCH (08:44)
--- NOTE | 2020-03-06 09:00 | NUR ---
Mobility Patient ambulate with steady gait to bathroom no dizziness.
[2020-03-06 11:01] VITALS: BP_SYST 147
--- NOTE | 2020-03-06 11:02 | NUR ---
PAGED DR HANNAH CONDE SPOKE WITH RIMA
--- NOTE | 2020-03-06 11:17 | NUR ---
[employer] CUTTER MOTORSPORTS TECHNICIAN DR MUJICA WAS CALLED, RE: CLEARANCE TO DISCHARGE PT TO HOME. SPOKE TO FANY.
--- NOTE | 2020-03-06 12:00 | NUR ---
Report given to [facility] LVN/EREN with all the information , patient is aware regarding discharge and agreed left a voicemail message public guardian Jania Simpson. all belongings hand over to patient.
--- NOTE | 2020-03-06 12:06 | NUR ---
CM Note: per FLACO Crespo pt is cleared for discharge. [facility] ambulance, [facility] with Huma # [phone]. gravity prospecting supervisor time is at 1330. -- Cherie made aware.
[2020-03-06 12:17] VITALS: BP_SYST 147
--- NOTE | 2020-03-06 13:02 | NUR ---
With clearance for discharge from station helper and Dr. Paredes per NORMAN GAVIN
--- NOTE | 2020-03-06 13:36 | NUR ---
D/C Patient Patient given medication reconciliation form and D/C instructions. Exit Care provided. . discussed with patient the results and treatment provided. Ambulatory with steady gait for discharge to home. Patient in stable condition, ID band removed. IV catheter removed, intact and dressing applied, no active bleeding. continue home medication. All belongings sent with patient.
== END 2020-03-06 13:30 | DRG 673 ==
LOC: SED 15:05 → STU 17:49
PROVIDERS: ADMIT Internal Medicine Hospice and Palliative Medicine; ATTEND Internal Medicine Hospice and Palliative Medicine
PROC: B548ZZA Ultrasonography of Superior Vena Cava, Guidance (ICD-10-PCS; 2020-03-02)
PROC: 30233N1 Transfusion of Nonautologous Red Blood Cells into Peripheral Vein, Percutaneous Approach (ICD-10-PCS; 2020-03-02)
PROC: 5A1D70Z Performance of Urinary Filtration, Intermittent, Less than 6 Hours Per Day (ICD-10-PCS; 2020-03-02)
PROC: 02HV33Z Insertion of Infusion Device into Superior Vena Cava, Percutaneous Approach (ICD-10-PCS; principal; 2020-03-02 18:30)
PROC: 5A1D70Z Performance of Urinary Filtration, Intermittent, Less than 6 Hours Per Day (ICD-10-PCS; 2020-03-03)
PROC: 0JH63XZ Insertion of Tunneled Vascular Access Device into Chest Subcutaneous Tissue and Fascia, Percutaneous Approach (ICD-10-PCS; 2020-03-05)
PROC: 02HV33Z Insertion of Infusion Device into Superior Vena Cava, Percutaneous Approach (ICD-10-PCS; 2020-03-05)
PROC: B5181ZA Fluoroscopy of Superior Vena Cava using Low Osmolar Contrast, Guidance (ICD-10-PCS; 2020-03-05)
PROC: 02PAX3Z Removal of Infusion Device from Heart, External Approach (ICD-10-PCS; 2020-03-05)
DX: I12.0 Hypertensive chronic kidney disease with stage 5 chronic kidney disease or end stage renal disease (principal); N18.6 End stage renal disease; N17.9 Acute kidney failure, unspecified; E11.22 Type 2 diabetes mellitus with diabetic chronic kidney disease; F20.9 Schizophrenia, unspecified; Z20.828 Contact with and (suspected) exposure to other viral communicable diseases; F31.9 Bipolar disorder, unspecified; F41.9 Anxiety disorder, unspecified; Z79.899 Other long term (current) drug therapy; Z91.15 Patient's noncompliance with renal dialysis; Z99.2 Dependence on renal dialysis
CPT/HCPCS: 36415; 36430; 71045; 76000; 80048; 80053; 82550-TC; 82962; 83880; 84484; 85025; 86580; 86803; 86886; 86900; 86901; 86920; 87081; 87340; 90935; 90937; 93005; 94010; 96374; 99285; C1750; G0378; J0690; J0885; J1644; J1815; J2001; J2060; J2250; J2405; J2704; J2765; J3010; J7030; P9021

== ENCOUNTER 2020-03-11 11:50 | Inpatient (IN) | payer OTHER, MEDICAID, SELFPAY ==
[~2020-03-11] VITALS: Ht 172.7 cm; Wt 86.2 kg
[~2020-03-11 11:50] MED LIST changes: -CAT.1 PO; -CEFAZOLIN 1 GM IVPB PREMIX 50 ML IV ONE; -CLON0.5T4 PO; -LIDOCAINE 1% 10 MG/ML, 20 ML MDV INJ ONE; -MIDAZOLAM HCL 5 MG/5 ML VIAL IVP ONE; -MULT-1089 PO; -NS 1000 ML IV.SOLN IV ONE; -PROPOFOL 200MG/ 20ML VIAL (DIPRIVAN) IV ONE; -SEVOFLURANE 15 MIN GAS INH ONE; +SODI650T PO; +VITD2000 PO; -VITD400 PO; -fentaNYL CITRATE/PF 100 MCG/2 ML AMP IVP ONE
--- NOTE | 2020-03-11 12:00 | NUR ---
Patient to ER bed 7 to gown for evaluation. Side rails up. Report given to Keith SAM.
[2020-03-11 12:01] VITALS: BP_SYST 190
--- NOTE | 2020-03-11 12:05 | NUR ---
Pt bib EMS from [facility] for abnormal labs and missed dialysis. V/S are currently stable, pt is afebrile. Currently resting in bed, will continue to monitor.
--- NOTE | 2020-03-11 12:10 | NUR ---
# 20 gauge angiocath placed to LFA. Use of asceptic technique. Opsite placed over site. Blood return noted. Blood for lab drawn from site. Flushed with 10 cc of normal saline. No evidence of infiltration noted. Patient tolerated well.
--- NOTE | 2020-03-11 12:13 | NUR ---
ER at bedside examining patient.
--- NOTE | 2020-03-11 12:21 | NUR ---
Radiology at bedside for CXR
[2020-03-11 12:27] LABS: BASOPHILS # (AUTO) 0.1 K/uL (0.0-0.2); BASOPHILS % (AUTO) 0.9 % (0.0-2.0); EOSINOPHILS # (AUTO) 0.7 K/uL (0.0-0.4); EOSINOPHILS % (AUTO) 7.2 % (0.0-4.0); HEMOGLOBIN 7.4 g/dL (14.0-18.0); LYMPHOCYTES # (AUTO) 2.1 K/uL (1.0-5.5); LYMPHOCYTES % (AUTO) 23.1 % (20.5-51.5); MEAN CORPUSCULAR HEMOGLOBIN 33 pg (27-31); MEAN CORPUSCULAR HGB CONC 35 % (32-36); MEAN CORPUSCULAR VOLUME 95 fL (79.0-98.0); MONOCYTES # (AUTO) 0.8 K/uL (0.0-1.0); MONOCYTES % (AUTO) 8.9 % (1.7-9.3); NEUTROPHILS # (AUTO) 5.5 K/uL (1.8-7.7); NEUTROPHILS % (AUTO) 59.9 % (40.0-70.0); PLATELET COUNT (AUTO) 207 K/uL (130-430); RED BLOOD CELL COUNT(AUTO) 2.25 MIL/uL (4.2-6.2); RED CELL DISTRIBUTION WIDTH 15.6 % (9.0-15.0); WHITE BLOOD COUNT (AUTO) 9.2 K/uL (4.8-10.8)
[2020-03-11 12:33] LABS: HEMATOCRIT 21.4 % (36-54)
[2020-03-11 12:56] LABS: CALCIUM 8.6 mg/dL (8.4-11.0)
[2020-03-11 13:02] LABS: ALBUMIN 2.8 g/dL (3.4-4.8); TOTAL BILIRUBIN 0.2 mg/dL (0.0-1.0)
[2020-03-11 13:03] LABS: POTASSIUM 5.8 mmol/L (3.5-5.1)
[2020-03-11 13:04] LABS: CREATININE 13.07 mg/dL (0.55-1.30)
--- NOTE | 2020-03-11 13:46 | NUR ---
TT Charge nurseNancie to request a bed, she will call us back
[2020-03-11] MEDS ORDERED: INSU100V9 SQ (14:07)
[2020-03-11] MEDS ORDERED: PHO667 PO (14:34)
[2020-03-11] MEDS ORDERED: CLOP75TA32 PO (14:34)
[2020-03-11] MEDS ORDERED: CILO50TA PO (14:34)
[2020-03-11] MEDS ORDERED: CLON0.5T4 PO (14:34)
[2020-03-11] MEDS ORDERED: MULT-1117 PO (14:34)
[2020-03-11] MEDS ORDERED: VITD2000 PO (14:34)
[2020-03-11] MEDS ORDERED: REN800 PO (14:34)
--- NOTE | 2020-03-11 14:53 | NUR ---
Spoke w/ Nancie GARNICA. Unable to get bed assignment at the moment.
--- NOTE | 2020-03-11 15:55 | NUR ---
Belongings list completed
--- NOTE | 2020-03-11 15:56 | NUR ---
Patient will be admitted to care of Dr. Rosales. Admitted to Tele unit. Will go to room 105A. Belongings list completed. Complete and up to date summary report printed. SBAR report to be given at bedside with opportunity for questions. IV site intact and patent.
--- NOTE | 2020-03-11 16:04 | NUR ---
ADMIT NOTE Received pt from ER/[facility] to the floor with a diagnosis of Renal failure. Admission process initiated. patient oriented to pain management, safety and call light-teach back done.
--- NOTE | 2020-03-11 16:10 | NUR ---
INITIAL ASSESSMENT: PATIENT RECEIVED IN THE ROOM,AWAKE,ALERT AND ORIENTED X4. WITH LEFT FOREARM IV SALINE LOCK ,CLEAN AND DRY. RIGHT IJ PERMA CATHETER,INTACT. CALL LIGHT WITH IN REACH. BED LOCKED AT LOWEST POSITION. CONTINUE TO MONITOR.
[2020-03-11 16:11] VITALS: BP_SYST 200
--- NOTE | 2020-03-11 16:13 | NUR ---
CONSULTATION PAGED REASON FOR CONSULTATION:[facility] WAS CONSULT CALLED?Y PERSON WHO WAS NOTIFIED:KENAN CONSULTING PHYSICIAN:VERNA HEIN MEDICAL TRANSLATOR SPECIALTY:NEPHROLOGY MEDICAL TRANSLATOR PHONE NUMBER:[phone] ORDERING PHYSICIAN:GRACIA BAÑUELOS
--- NOTE | 2020-03-11 16:30 | NUR ---
Spoke to the farm contractor buyer public guardian Jacinta Natarajan phone no. [phone] ,if it is emergency to follow hospital protocol
--- NOTE | 2020-03-11 17:07 | NUR ---
HD : HEMODIALYSIS ON GOING.
[2020-03-11] MEDS: CALCIUM ACETATE 667 MG CAP PO SCH (17:45)
[2020-03-11] MEDS: SEVELAMER CARBONATE 800 MG TABLET PO SCH (17:45)
[2020-03-11] MEDS ORDERED: SEVELAMER HCL Non-Formulary 800 MG TABLET PO SCH ×2 (18:00→21:00)
--- NOTE | 2020-03-11 18:43 | NUR ---
END OF SHIFT: HD ON GOING. PATIENT ATE DINNER WELL. CALL LIGHT WITH IN REACH. BED LOCKED AT LOWEST POSITION. CONDITION GUARDED.
[2020-03-11] MEDS ORDERED: HEPARIN SODIUM,PORCINE 5,000 UNITS/ML VIAL MC ONE (19:30)
--- NOTE | 2020-03-11 19:30 | NUR ---
OPENING NOTE RECEIVED CARE OF PT AND SBAR REPORT. PT IS AAOX4, RESTING IN BED RECEIVING DIALYSIS WITH DIALYSIS NURSE AT BEDSIDE. NO S/S OF ACUTE DISTRESS. VSS. SAFETY AND FALL PRECAUTIONS ARE IN PLACE. CALL LIGHT IS WITH PT. WILL CONTINUE TO MONITOR.
[2020-03-11 20:00] VITALS: BP_SYST 128
[2020-03-11] MEDS ORDERED: CALCIUM ACETATE 667 MG CAP PO SCH (21:00)
[2020-03-11] MEDS: ATORVASTATIN 20 MG TABLET PO SCH (21:07)
[2020-03-11] MEDS: clonazePAM 0.5 MG TABLET PO SCH (21:07)
[2020-03-11] MEDS: SODIUM BICARBONATE 650 MG TABLET PO SCH (21:07)
[2020-03-11] MEDS: QUEtiapine FUMARATE 25 MG TABLET PO SCH (21:07)
[2020-03-11] MEDS: METOPROLOL TARTRATE 25 MG TABLET PO SCH (21:08)
--- NOTE | 2020-03-11 21:12 | NUR ---
MEDICATION DUE MEDICATIONS GIVEN SCHEDULED, TOLERATED WELL. WILL CONTINUE TO MONITOR.
[2020-03-11] MEDS: INSULIN LISPRO SLIDING SCALE 100 UNITS/ML VIAL (humaLOG) SUBCUT PRN (21:17)
--- NOTE | 2020-03-11 23:45 | NUR ---
SNACKS PT REQUESTED SNACKS. PT GIVEN SANDWICH PER REQUEST. WILL MONITOR.
[2020-03-12 02:52] VITALS: BP_SYST 155
--- NOTE | 2020-03-12 04:34 | NUR ---
RESTING: PT RESTING IN BED, NO S/S OF ACUTE DISTRESS, SAFETY MAINTAINED. WILL MONITOR.
[2020-03-12] MEDS: SODIUM BICARBONATE 650 MG TABLET PO SCH ×3 (06:06→21:00)
[2020-03-12] MEDS ORDERED: EPOETIN ALFA 20,000 UNITS/ML VIAL SUBCUT ONE (06:30)
[2020-03-12 06:35] LABS: BASOPHILS # (AUTO) 0.1 K/uL (0.0-0.2); BASOPHILS % (AUTO) 1.1 % (0.0-2.0); EOSINOPHILS # (AUTO) 0.5 K/uL (0.0-0.4); EOSINOPHILS % (AUTO) 7.8 % (0.0-4.0); LYMPHOCYTES # (AUTO) 1.8 K/uL (1.0-5.5); LYMPHOCYTES % (AUTO) 27.8 % (20.5-51.5); MEAN CORPUSCULAR HEMOGLOBIN 32 pg (27-31); MEAN CORPUSCULAR HGB CONC 34 % (32-36); MEAN CORPUSCULAR VOLUME 94 fL (79.0-98.0); MONOCYTES # (AUTO) 0.7 K/uL (0.0-1.0); MONOCYTES % (AUTO) 10.4 % (1.7-9.3); NEUTROPHILS # (AUTO) 3.5 K/uL (1.8-7.7); NEUTROPHILS % (AUTO) 52.9 % (40.0-70.0); PLATELET COUNT (AUTO) 211 K/uL (130-430); RED BLOOD CELL COUNT(AUTO) 2.13 MIL/uL (4.2-6.2); RED CELL DISTRIBUTION WIDTH 15.7 % (9.0-15.0); WHITE BLOOD COUNT (AUTO) 6.6 K/uL (4.8-10.8)
[2020-03-12 07:22] LABS: ALBUMIN 2.5 g/dL (3.4-4.8); CALCIUM 7.9 mg/dL (8.4-11.0); TOTAL BILIRUBIN 0.2 mg/dL (0.0-1.0)
[2020-03-12 07:42] LABS: HEMATOCRIT 20.1 % (36-54); HEMOGLOBIN 6.9 g/dL (14.0-18.0)
[2020-03-12 07:50] LABS: CREATININE 8.84 mg/dL (0.55-1.30)
[2020-03-12 08:00] VITALS: BP_SYST 153
--- NOTE | 2020-03-12 08:00 | NUR ---
INITIAL NOTES AWAKE, ALERT. DENIES ANY PAIN. NO DISTRESS NOTED. SAFETY PRECAUTION OBSERVED. BED ALARM ON. WILL CONTINUE TO MONITOR.
--- NOTE | 2020-03-12 08:20 | NUR ---
CRITICAL LAB- SPOKE TO DR. DURAN AND MADE AWARE OF H%H RESULTS. ORDERED TO TRANSFUSE 1PRBC EMERGENCY. DR. DURAN WILL SIGNED CONSENT.
[2020-03-12] MEDS ORDERED: CHOLECALCIFEROL (VITAMIN D3) 2,000 UNIT TABLET PO SCH (09:00)
--- NOTE | 2020-03-12 09:05 | NUR ---
Notes/refused pt is refusing blood draw for blood transfusion. talked to patient about the important of blood transfusion but still refusing. patient stated that they just did blood draw this morning, informed him that it is a different one but patient still infusing.
[2020-03-12] MEDS: amLODIPine BESYLATE 10 MG TABLET PO SCH (09:42)
[2020-03-12] MEDS: SEVELAMER CARBONATE 800 MG TABLET PO SCH ×3 (09:42→17:20)
[2020-03-12] MEDS: METOPROLOL TARTRATE 25 MG TABLET PO SCH ×2 (09:42→20:55)
[2020-03-12] MEDS: CALCIUM ACETATE 667 MG CAP PO SCH ×3 (09:43→17:19)
[2020-03-12] MEDS: LOSARTAN POTASSIUM 25 MG TABLET PO SCH (09:43)
[2020-03-12] MEDS: QUEtiapine FUMARATE 25 MG TABLET PO SCH ×2 (09:43→20:55)
[2020-03-12] MEDS: clonazePAM 0.5 MG TABLET PO SCH ×2 (09:43→20:55)
[2020-03-12] MEDS: CHOLECALCIFEROL (VITAMIN D3) 2,000 UNIT TABLET PO SCH (09:44)
[2020-03-12] MEDS: MULTIVITAMINS TAB 1 TABLET PO SCH (09:44)
[2020-03-12] MEDS: NEPHROVITE, (FOLIC ACID/VITAMIN B COMP W-C 1 TAB) PO SCH (09:44)
[2020-03-12] MEDS: CILOSTAZOL 50 MG TABLET (PLETAL) PO SCH (09:44)
[2020-03-12] MEDS: SOD FERRIC GLUC COMPLEX/SUC 125 MG in NS 100 ML IV SCH (09:45)
--- NOTE | 2020-03-12 12:01 | NUR ---
Left message for conservator Jania Simpson [phone]-regarding paperwork needed for outpt HD at [facility] [phone]. Also I left message at [facility] concerning incomplete paperwork that is preventing pt from dialyzing at their dialysis unit
[2020-03-12 12:12] VITALS: BP_SYST 125
--- NOTE | 2020-03-12 12:15 | NUR ---
Accucheck- Patient refused to check his blood sugar at this time.
--- NOTE | 2020-03-12 14:56 | NUR ---
Spoke w/ conservator Jania Simpson-she stated [facility] has refused to accept the patient-they do not have a chair time for him. I spoke w/ Dr Chao-he will look into other dialysis arrangements for the patient and get back to me on Sunday regarding dialysis for the patient.
--- NOTE | 2020-03-12 15:28 | NUR ---
NOTES- Resting in bed, denies any pain, patient just want sandwich. Fontana sandwich provided.
[2020-03-12 16:14] VITALS: BP_SYST 135
--- NOTE | 2020-03-12 18:10 | NUR ---
Notes/accucheck Refused to check blood sugar again. Patient is now eating dinner. Blood still infusing at this time. No reaction noted. so far. Will endorse
--- NOTE | 2020-03-12 19:30 | NUR ---
OPENING NOTES: Received report from dayshift nurse. Patient is laying in bed, alert and oriented x3. He has IV on LFA with blood transfusion that just ended. Patient is on tele monitor. He is ambulatory with assistance. Patient was helped to the bathroom and walks very quickly as he shuffles his feet. Assisted patient back to bed and reminded to use call light for assistance. Ensured all safety precautions. Bed is locked and in the lowest position. Call light within reach.
[2020-03-12 20:00] VITALS: BP_SYST 164
[2020-03-12] MEDS: ATORVASTATIN 20 MG TABLET PO SCH (20:54)
--- NOTE | 2020-03-12 20:55 | NUR ---
MEDICATION ADMINISTRATION: Patient is laying in bed with no s/s of distress or discomfort. He has no complaints at this time. I administered medications as ordered by MD, he tolerated well. I educated patient about the benefits and potential side effects of Lopressor, he verbalized understanding. Will continue to monitor patient.
--- NOTE | 2020-03-12 23:00 | NUR ---
RN ROUNDS: Patient is laying in bed and appears to be asleep. He is not having any s/s of distress or discomfort. Bed is in the lowest position with alarm on and call light within reach. Will continue to monitor patient.
[2020-03-13] VITALS: BP_SYST 153
--- NOTE | 2020-03-13 01:00 | NUR ---
RN ROUNDS: Patient continues to appear to be asleep. He is in stable condition. Will continue to monitor.
--- NOTE | 2020-03-13 03:00 | NUR ---
RN ROUNDS: Patient is laying in bed and appears to be asleep. Is not exhibiting any s/s distress or discomfort. Will continue to monitor patient.
--- NOTE | 2020-03-13 05:00 | NUR ---
RN ROUNDS: Patient is laying in bed and continues to be asleep. He is in stable condition. Will continue to monitor. Bed is in the lowest position with alarm on. Call light within reach.
[2020-03-13] MEDS: SODIUM BICARBONATE 650 MG TABLET PO SCH ×3 (06:00→21:47)
--- NOTE | 2020-03-13 06:35 | NUR ---
CLOSING NOTES: Patient is laying in bed, alert and oriented x3. He has permacath right subclavian with dry dressing and IV on LFA patent and intact. Patient continues on tele monitor. He is ambulatory with assistance. Patient was reminded to call for assistance when he needs to use the bathroom, he declines to use urinal. His BG this morning was 100 with no insulin coverage. All needs were met throughout shift. Ensured all safety precautions. Bed is locked and in the lowest position. Call light within reach. Will endorse to dayshift nurse.
--- NOTE | 2020-03-13 07:35 | NUR ---
OPENING NOTE Patient resting in the bed. No acute distress. Denied of pain. Skin warm and dry to touch. SL intact to LFA, no redness, no swelling, patent. Permacath intact to right subclavian with clean and dry dressing. Safety measure maintained. Call light within reached. Bed locked in low position, side rail sup, bed alarm on. Will continue to monitor.
[2020-03-13 08:00] VITALS: BP_SYST 138
[2020-03-13] MEDS: SOD FERRIC GLUC COMPLEX/SUC 125 MG in NS 100 ML IV SCH (09:26)
[2020-03-13] MEDS: SEVELAMER CARBONATE 800 MG TABLET PO SCH ×3 (09:27→17:56)
[2020-03-13] MEDS: CALCIUM ACETATE 667 MG CAP PO SCH ×3 (09:27→17:56)
[2020-03-13] MEDS: clonazePAM 0.5 MG TABLET PO SCH ×2 (09:32→20:42)
[2020-03-13] MEDS: MULTIVITAMINS TAB 1 TABLET PO SCH (09:32)
[2020-03-13] MEDS: NEPHROVITE, (FOLIC ACID/VITAMIN B COMP W-C 1 TAB) PO SCH (09:33)
[2020-03-13] MEDS: CHOLECALCIFEROL (VITAMIN D3) 2,000 UNIT TABLET PO SCH (09:33)
[2020-03-13] MEDS: QUEtiapine FUMARATE 25 MG TABLET PO SCH ×2 (09:33→20:41)
[2020-03-13] MEDS: LOSARTAN POTASSIUM 25 MG TABLET PO SCH (09:35)
[2020-03-13] MEDS: METOPROLOL TARTRATE 25 MG TABLET PO SCH ×2 (09:35→20:41)
[2020-03-13] MEDS: CILOSTAZOL 50 MG TABLET (PLETAL) PO SCH (09:35)
[2020-03-13] MEDS: amLODIPine BESYLATE 10 MG TABLET PO SCH (09:35)
--- NOTE | 2020-03-13 09:35 | NUR ---
AM SCHEDULE MED GIVEN, TOLERATED WELL.
--- NOTE | 2020-03-13 09:56 | NUR ---
Nutrition Update Maxi Scale 18 noted. Pt admitted for renal failure, anemia. Diet: renal BMI: 29.7 kg/m2 RD to follow per nutrition care standards.
--- NOTE | 2020-03-13 10:43 | NUR ---
DR. REESE, [facility] MAKING ROUNDS. INFORMED TO DR. REESE, PATIENT HBG=6.9 YESTERDAY, 1 UNIT OF PRBC TRANSFUSED YESTERDAY. NO LAB WAS ORDERED. DR. REESE WITH ORDER CBC, NOTED AND CARRIED OUT.
[2020-03-13 11:15] LABS: BASOPHILS # (AUTO) 0.1 K/uL (0.0-0.2); BASOPHILS % (AUTO) 1.2 % (0.0-2.0); EOSINOPHILS # (AUTO) 0.7 K/uL (0.0-0.4); EOSINOPHILS % (AUTO) 9.2 % (0.0-4.0); HEMATOCRIT 23.1 % (36-54); HEMOGLOBIN 8.2 g/dL (14.0-18.0); LYMPHOCYTES # (AUTO) 1.9 K/uL (1.0-5.5); LYMPHOCYTES % (AUTO) 26.3 % (20.5-51.5); MEAN CORPUSCULAR HEMOGLOBIN 32 pg (27-31); MEAN CORPUSCULAR HGB CONC 36 % (32-36); MEAN CORPUSCULAR VOLUME 90 fL (79.0-98.0); MONOCYTES # (AUTO) 0.6 K/uL (0.0-1.0); MONOCYTES % (AUTO) 8.4 % (1.7-9.3); NEUTROPHILS % (AUTO) 54.9 % (40.0-70.0); PLATELET COUNT (AUTO) 184 K/uL (130-430); RED BLOOD CELL COUNT(AUTO) 2.55 MIL/uL (4.2-6.2); RED CELL DISTRIBUTION WIDTH 16.8 % (9.0-15.0); WHITE BLOOD COUNT (AUTO) 7.2 K/uL (4.8-10.8)
--- NOTE | 2020-03-13 11:27 | NUR ---
SEEN AND EXAMINED BY VERNA MONTALVO.
--- NOTE | 2020-03-13 12:22 | NUR ---
ZR=910 No insulin coverage needed per sliding scale as ordered. Patient resting in the bed. No acute distress. Safety measure maintained. Call light within reached. Bed locked in low position, side rails up, bed alarm on. Continue to monitor.
[2020-03-13 12:26] VITALS: BP_SYST 131
--- NOTE | 2020-03-13 14:01 | NUR ---
PAGED PAGED VERNA HEIN AT [phone] SPOKE WITH BLANCA.
--- NOTE | 2020-03-13 14:07 | NUR ---
HIGH ALERT NOTE: Called Dr. Delaney back at [phone] identified within the medical roster to verify physician authenticity.
--- NOTE | 2020-03-13 14:10 | NUR ---
HEMODIALYSIS STARTED Patient resting in the bed. No acute distress. Hemodialysis started. Dialysis nurse stay with patient at bedside. Safety measure maintained. Call light within reached. Continue to monitor.
[2020-03-13] MEDS ORDERED: HEPARIN SODIUM,PORCINE 5,000 UNITS/ML VIAL IVP ONE (14:15)
--- NOTE | 2020-03-13 15:47 | NUR ---
Dietitian Recommendations * Recommend continuing [facility], [facility], 100 gm protein diet LP, RD Please refer to Nutrition Assessment for details. Addendum: 03/13/20 at [address] Amended: Links added.
--- NOTE | 2020-03-13 16:15 | NUR ---
HEMODIALYSIS IN PROCESS, BP STABLE. DIALYSIS NURSE AT BEDSIDE. CALL LIGHT WITHIN REACHED. CONTINUE TO MONITOR.
[2020-03-13 16:27] VITALS: BP_SYST 138
--- NOTE | 2020-03-13 16:45 | NUR ---
PATIENT C/O PAIN ON IV SITE. IV REMOVED BUT PATIENT REFUSED TO INSERT A NEW ONE AT THIS TIME. WILL OFFER A NEW IV INSERTION LATER.
--- NOTE | 2020-03-13 17:15 | NUR ---
HEMODIALYSIS COMPLETED Patient resting in the bed. No acute distress. Hemodialysis completed with 2400ml out. BP stable. Safety measure maintained. Call light within reached. Bed locked in low position, side rails up. Continue to monitor.
[2020-03-13] MEDS: INSULIN LISPRO SLIDING SCALE 100 UNITS/ML VIAL (humaLOG) SUBCUT PRN ×2 (17:59→20:46)
--- NOTE | 2020-03-13 18:01 | NUR ---
QV=859 Humalog insulin 2 unit given per sliding scale as ordered. Patient no acute distress. Safety measure maintained. Call light within reached. Bed locked in low position, side rails up. Continue to monitor.
--- NOTE | 2020-03-13 18:55 | NUR ---
CLOSING NOTE Patient resting in the bed. No acute distress. Denied of pain. Skin warm and dry to touch. Permacath intact to right subclavian with clean and dry dressing. No IV access at this time due to patient refused. Will endorse to night nurse to insert one. Safety measure maintained. Call light within reached. Bed locked in low position, side rail sup, bed alarm on. Will endorse to night nurse.
--- NOTE | 2020-03-13 19:30 | NUR ---
OPENING NOTES: Received report from dayshift nurse. Patient is laying in bed, alert and oriented x3. He has permacath right subclavian with dry dressing. IV was infiltrated and was removed by dayshift nursed. Informed patient I would be inserting a new IV today, he verbalized understanding. Patient is on tele monitor. He is ambulatory with assistance. Patient was reminded to call for assistance when he needs to use the bathroom, he declines to use urinal. Patient had dialysis today via permacath with 2.4 out. Ensured all safety precautions. Bed is locked and in the lowest position. Call light within reach.
[2020-03-13 20:00] VITALS: BP_SYST 163
--- NOTE | 2020-03-13 20:40 | NUR ---
MEDICATION ADMINISTRATION: Patient is laying in bed, alert and oriented. New IV inserted to right forearm 20 g, pt tolerated well. IV was saline locked and secured with kerlix. Administered medications as ordered by MD, pt tolerated well. Patient appears withdrawn and is agitated at times. States he wants to go home. I educated patient about the use of Lipitor, he verbalized understanding and does not have any concerns at this time. Will continue to monitor patient.
[2020-03-13] MEDS: ATORVASTATIN 20 MG TABLET PO SCH (20:41)
--- NOTE | 2020-03-13 23:00 | NUR ---
RN ROUNDS: Patient attempted to get out of bed says he's upset because he wants to go home. I reminded patient that he had dialysis and we are monitoring. Also reminded patient to call for assistance before getting out of bed, he said "Okay". Will continue to monitor patient.
[2020-03-14 00:12] VITALS: BP_SYST 158
--- NOTE | 2020-03-14 01:00 | NUR ---
RN ROUNDS: Patient is laying in bed and appears to be asleep. He is not exhibiting any s/s of distress or discomfort. Patient has unlabored breathing on room air. Bed is in the lowest position with alarm on. Will continue to monitor patient.
--- NOTE | 2020-03-14 03:00 | NUR ---
BATHROOM USE / UNSTEADY GAIT: Patient has been attempting to get out of bed without calling for help. The bed alarm is on and goes off every time. Patient appears to be more withdrawn today and is not engaging. He continues to shuffle feet but is more unsteady and is unable to get out of bed very easily. I have brought a bedside commode to patients room however, he refuses to use it and also refuses urinal. He continues to ask for coca cola but I have informed him that due to renal diet he cannot have that this time, he became upset. I educated patient about fall prevention to prevent injuries but he continue to insist that he can only go to the bathroom if uses the toilet. I stood with patient as he went to the bathroom and one occasion he agreed to hold my hand. Will continue to monitor patient and will assist to the bathroom as needed.
--- NOTE | 2020-03-14 05:00 | NUR ---
RN ROUNDS: Patient is laying in bed and appears to be asleep. He is in stable condition. Will continue to monitor.
[2020-03-14] MEDS: SODIUM BICARBONATE 650 MG TABLET PO SCH ×3 (06:12→21:11)
[2020-03-14 06:26] LABS: BASOPHILS # (AUTO) 0.1 K/uL (0.0-0.2); EOSINOPHILS # (AUTO) 0.1 K/uL (0.0-0.4); EOSINOPHILS % (AUTO) 1.5 % (0.0-4.0); HEMATOCRIT 23.7 % (36-54); HEMOGLOBIN 8.4 g/dL (14.0-18.0); LYMPHOCYTES # (AUTO) 1.2 K/uL (1.0-5.5); LYMPHOCYTES % (AUTO) 12.8 % (20.5-51.5); MEAN CORPUSCULAR HEMOGLOBIN 32 pg (27-31); MEAN CORPUSCULAR HGB CONC 36 % (32-36); MEAN CORPUSCULAR VOLUME 90 fL (79.0-98.0); MONOCYTES # (AUTO) 0.8 K/uL (0.0-1.0); MONOCYTES % (AUTO) 8.9 % (1.7-9.3); NEUTROPHILS # (AUTO) 7.1 K/uL (1.8-7.7); NEUTROPHILS % (AUTO) 75.8 % (40.0-70.0); PLATELET COUNT (AUTO) 183 K/uL (130-430); RED BLOOD CELL COUNT(AUTO) 2.62 MIL/uL (4.2-6.2); RED CELL DISTRIBUTION WIDTH 17.2 % (9.0-15.0); WHITE BLOOD COUNT (AUTO) 9.4 K/uL (4.8-10.8)
--- NOTE | 2020-03-14 06:50 | NUR ---
CLOSING NOTES: Patient is laying in bed, alert and oriented x3. He has permacath right subclavian with dry dressing and IV on RFA 20g patent and intact. Patient continues on tele monitor. He is ambulatory with assistance and is more unsteady this shift. He refuses urinal and bedside commode. Patient was reminded to call for assistance when he needs to use the bathroom. All needs were met throughout shift. Ensured all safety precautions. Bed is locked and in the lowest position. Call light within reach. Will endorse to dayshift nurse.
--- NOTE | 2020-03-14 07:24 | NUR ---
OPENING NOTE Patient resting in the bed. No acute distress. Denied of pain. Skin warm and dry to touch. SL intact to RFA, no redness, no swelling, patent. Permacath intact to right subclavian with clean and dry dressing. Safety measure maintained. Call light within reached. Bed locked in low position, side rail sup, bed alarm on. Will continue to monitor.
[2020-03-14 07:37] LABS: ALBUMIN 2.7 g/dL (3.4-4.8); CALCIUM 8.5 mg/dL (8.4-11.0); POTASSIUM 5.4 mmol/L (3.5-5.1); TOTAL BILIRUBIN 0.3 mg/dL (0.0-1.0)
[2020-03-14 07:46] LABS: CREATININE 8.23 mg/dL (0.55-1.30)
--- NOTE | 2020-03-14 07:52 | NUR ---
CRITICAL LAB: CREATININE=8.23 Called [facility], left message and waited to call back.
[2020-03-14 07:55] VITALS: BP_SYST 144
--- NOTE | 2020-03-14 07:56 | NUR ---
RECEIVED CALL BACK FROM VERNA MONTALVO. REPORTED CREATININE=8.23, POTASSIUM=5.4 WITH NO NEW ORDER.
--- NOTE | 2020-03-14 08:40 | NUR ---
SEEN AND EXAMINED BY VERNA MONTALVO WITH ORDER RECEIVED.
[2020-03-14] MEDS: CILOSTAZOL 50 MG TABLET (PLETAL) PO SCH (09:01)
[2020-03-14] MEDS: MULTIVITAMINS TAB 1 TABLET PO SCH (09:01)
[2020-03-14] MEDS: CALCIUM ACETATE 667 MG CAP PO SCH ×3 (09:01→17:38)
[2020-03-14] MEDS: SEVELAMER CARBONATE 800 MG TABLET PO SCH ×3 (09:01→17:38)
[2020-03-14] MEDS: amLODIPine BESYLATE 10 MG TABLET PO SCH (09:02)
[2020-03-14] MEDS: LOSARTAN POTASSIUM 25 MG TABLET PO SCH (09:03)
[2020-03-14] MEDS: CHOLECALCIFEROL (VITAMIN D3) 2,000 UNIT TABLET PO SCH (09:03)
[2020-03-14] MEDS: QUEtiapine FUMARATE 25 MG TABLET PO SCH ×2 (09:03→21:14)
[2020-03-14] MEDS: NEPHROVITE, (FOLIC ACID/VITAMIN B COMP W-C 1 TAB) PO SCH (09:03)
[2020-03-14] MEDS: clonazePAM 0.5 MG TABLET PO SCH ×2 (09:03→21:14)
[2020-03-14] MEDS: METOPROLOL TARTRATE 25 MG TABLET PO SCH ×2 (09:04→21:15)
[2020-03-14] MEDS: SOD FERRIC GLUC COMPLEX/SUC 125 MG in NS 100 ML IV SCH (09:11)
--- NOTE | 2020-03-14 09:22 | NUR ---
AM SCHEDULE MED, PATIENT TOLERATED WELL.
--- NOTE | 2020-03-14 10:09 | NUR ---
SEEN AND EXAMINED BY SAMANTHA RODRIGUEZ.
[2020-03-14 12:08] VITALS: BP_SYST 145
--- NOTE | 2020-03-14 13:45 | NUR ---
ROUND Patient resting in the bed with eye closed. No acute distress. Safety measure maintained. Bed locked in low position, side rails up, bed alarm on. Call light within reached. Continue to monitor.
--- NOTE | 2020-03-14 15:13 | NUR ---
ROUND Patient resting in the bed with eye closed. No acute distress. Safety measure maintained. Call light within reached. Bed locked in low position, side rails up, bed alarm on. Continue to monitor.
[2020-03-14 16:42] VITALS: BP_SYST 124
[2020-03-14] MEDS: INSULIN LISPRO SLIDING SCALE 100 UNITS/ML VIAL (humaLOG) SUBCUT PRN ×2 (17:38→21:13)
--- NOTE | 2020-03-14 18:38 | NUR ---
CLOSING NOTE Patient resting in the bed. No acute distress. Denied of pain. Skin warm and dry to touch. Permacath intact to right subclavian with clean and dry dressing. SL intact to RFA, no redness, no swelling, patent. All needs met. Safety measure maintained. Call light within reached. Bed locked in low position, side rail sup, bed alarm on. Will endorse to night nurse.
--- NOTE | 2020-03-14 19:38 | NUR ---
Initial note: Received report from dayshift RN. Patient is awake in bed, does not show any acute distress. Breathing is even and unlabored on trach room air. IV site saline locked. Call light with patient. Safety, fall precautions in place. Will continue with plan of care.
[2020-03-14 20:00] VITALS: BP_SYST 148
[2020-03-14] MEDS: ATORVASTATIN 20 MG TABLET PO SCH (21:14)
--- NOTE | 2020-03-14 22:40 | NUR ---
Rounds: Patient is asleep, no s/s of acute distress. Breathing is even and unlabored on room air. IV site benign and intact, saline locked. Call light is with patient. Will continue to monitor.
[2020-03-15 00:29] VITALS: BP_SYST 134
--- NOTE | 2020-03-15 01:50 | NUR ---
Rounds: Patient is resting in bed, no acute distress. Respirations even and unlabored on room air. IV site benign and intact, saline locked. Call light is with patient. Will continue to monitor.
--- NOTE | 2020-03-15 04:22 | NUR ---
Rounds: Patient is in bed asleep. No acute distress. Tolerating room air. Even and unlabored respirations. IV site intact and benign. Call light with patient. Will continue to monitor.
[2020-03-15] MEDS: SODIUM BICARBONATE 650 MG TABLET PO SCH ×3 (06:08→21:13)
--- NOTE | 2020-03-15 06:21 | NUR ---
Closing note: Patient is resting in bed, no acute distress. Even, unlabored respirations. Tolerating room air. IV site saline locked, benign and intact. All needs met. Safety, fall precautions observed. Will endorse care to dayshift RN.
[2020-03-15 08:00] VITALS: BP_SYST 150
--- NOTE | 2020-03-15 08:00 | NUR ---
Opening Notes Patient is awake, alert and oriented x4. No resp distress noted. Breathing is even and unlabored. Pt denies any pain at this time. Patient is agitated. IV site on right FA, 20 gauge intact at this time, saline lock. Pt is currently refusing vital signs monitoring at this time, will try again later. Patient is eating breakfast independently at this time. All needs met. Call light within reach. Safety and fall precautions in place at this time. Will continue to monitor.
[2020-03-15] MEDS: EPOETIN ALFA 10,000 UNITS/ML VIAL SUBCUT SCH (08:39)
[2020-03-15] MEDS: NEPHROVITE, (FOLIC ACID/VITAMIN B COMP W-C 1 TAB) PO SCH (08:39)
[2020-03-15] MEDS: MULTIVITAMINS TAB 1 TABLET PO SCH (08:39)
[2020-03-15] MEDS: clonazePAM 0.5 MG TABLET PO SCH ×2 (08:39→21:13)
[2020-03-15] MEDS: SOD FERRIC GLUC COMPLEX/SUC 125 MG in NS 100 ML IV SCH (08:39)
[2020-03-15] MEDS: CILOSTAZOL 50 MG TABLET (PLETAL) PO SCH (08:40)
[2020-03-15] MEDS: amLODIPine BESYLATE 10 MG TABLET PO SCH (08:40)
[2020-03-15] MEDS: CHOLECALCIFEROL (VITAMIN D3) 2,000 UNIT TABLET PO SCH (08:40)
[2020-03-15] MEDS: QUEtiapine FUMARATE 25 MG TABLET PO SCH ×2 (08:40→21:14)
[2020-03-15] MEDS: LOSARTAN POTASSIUM 25 MG TABLET PO SCH (08:41)
[2020-03-15] MEDS: CALCIUM ACETATE 667 MG CAP PO SCH ×4 (08:44→17:13)
[2020-03-15] MEDS: SEVELAMER CARBONATE 800 MG TABLET PO SCH ×4 (08:44→17:13)
[2020-03-15] MEDS: METOPROLOL TARTRATE 25 MG TABLET PO SCH ×2 (08:45→21:14)
--- NOTE | 2020-03-15 09:45 | NUR ---
Med Pass All due meds rendered, administered blood pressure medications as well. Educated pt on plan of care of the day: Hemodialysis. Aware and agreed.
--- NOTE | 2020-03-15 10:30 | NUR ---
Notes/Dialysis Started Patient is laying in bed, resting at this time. Receiving dialysis, toelrated well. No resp distress noted. Breathing is even and unlabored. Denies any pain. Will continue to monitor.
--- NOTE | 2020-03-15 10:38 | NUR ---
PAGED PAGED VERNA CRAWFORD AT [phone] SPOKE WITH RATNA.
[2020-03-15] MEDS ORDERED: ALBUMIN HUMAN 25% 100 ML IV SCH (10:45)
--- NOTE | 2020-03-15 10:56 | NUR ---
HIGH ALERT NOTE: SPOKE WITH Dr. PENNINGTON ON THE FLOOR at 1055, OBTAINED NEW ORDERS FOR PATIENTS DIALYSIS. Identified within the medical roster to verify physician authenticity. HEPARIN 5,000 UNITS (X2 DOSES) X 1 TIME ONLY FOR DIALYSIS. NOTED AND CARRIED OUT.
[2020-03-15] MEDS ORDERED: HEPARIN SODIUM,PORCINE 5,000 UNITS/ML VIAL SUBCUT ONE ×2 (11:00)
[2020-03-15] MEDS: INSULIN LISPRO SLIDING SCALE 100 UNITS/ML VIAL (humaLOG) SUBCUT PRN ×2 (11:10→21:20)
--- NOTE | 2020-03-15 11:30 | NUR ---
Blood Sugar: 248 mg/dL Patients BS was noted at 248 mg/dL. Per sliding scale, administered 4 units of Lispro insulin, tolerated well. Will continue to monitor.
--- NOTE | 2020-03-15 11:59 | NUR ---
P.T. NOTES HOLD P.T. EVAL DUE TO ONGOING HD; FF UP TOMORROW IF ABLE.
[2020-03-15 12:16] VITALS: BP_SYST 139
--- NOTE | 2020-03-15 12:20 | NUR ---
Notes Patient is still receiving dialysis at this time. No resp distress noted. Breathing is even and unlabored. No signs of pain at this time. Will continue to monitor.
--- NOTE | 2020-03-15 13:32 | NUR ---
Discharge Planning: [facility] faxed pt referral to [facility] ) [facility] is not accepting patients at this time, faxed to [facility] and [facility] tang pt per Brenna. DCP made CM aware. Addendum: 03/15/20 at 1408 by Lorenza Ivy DP DCP faxed referral ti [facility] ([phone]) will accept pt back when, when patient is discharging nurse to call and ask for [facility] to get room. DSP faxed referral to [facility] ([phone]) and Sonia kimball [facility] (f [phone] p [phone]) ARP to follow up. Addendum: 03/15/20 at 1501 by Lorenza Ivy DP DCP followed up with [facility] [place] ([phone]) [facility] and Sonia at [facility] (f [phone] p [phone]) declined patient due to conservator will not sigh paperwork needed. DCP to follow up.
[2020-03-15 16:13] VITALS: BP_SYST 105
--- NOTE | 2020-03-15 17:14 | NUR ---
Blood Sugar: 161 mg/dL/REFUSED INSULIN AND MEDICATIONS Patients BS was noted at 248 mg/dL. Per sliding scale, scheduled to administer 2 units of Lispro, patient refused. Patient is also refusing medications. Nurse educated pt on benefits on meds and insulin, pt refused x3. Will continue to monitor.
--- NOTE | 2020-03-15 18:16 | NUR ---
Closing Notes Patient is awake, alert and oriented x4. Patient is agitated. Per patient, "The doctor said I can go home yesterday. He fucken lied. thats all you guys do is lie!" Nurse educated patient that the are still trying to assign him a dialysis center when he discharges. Patient grew more agitated. "No you guys are just lying to me." No resp distress noted. Breathing is even and unlabored. IV site on right FA, 20 gauge intact at this time, saline lock. Pt ate 100% of dinner. All needs met at this time. Safety and fall precautions in place. Bed in lowest position, locked.
--- NOTE | 2020-03-15 19:05 | NUR ---
OPENING NOTES PATIENT IS RESTING, UNHAPPY THAT HE HAS NOT BEEN DISCHARGED TODAY. NO RESPIRATORY DISTRESS NOTED, ROOM AIR. IV SITE PATENT, DRESSINGS C/D/I, SALINE LOCK. PERMACATH AT RIGHT SUBCLAVIAN. RECEIVED REPORT THAT PATIENT HAD DIALYSIS TODAY WITH 1100ML OUT. SKIN INTACT. CASE MANAGEMENT NOTES STATES THAT PATIENT DOES NOT HAVE DIALYSIS CENTER AND SO CANNOT BE DISCHARGED TODAY. WILL ATTEMPT TO PROVIDE TEACHING ON DISCHARGE PROCESS WHEN PATIENT IS LESS AGITATED. ORIENTED PATIENT ON PLAN OF CARE. CALL LIGHT USED PROPERLY. BED ALARM ON, BED AT LOWEST POSITION, CALL LIGHT WITHIN REACH. WILL CONTINUE TO MONITOR.
[2020-03-15 20:00] VITALS: BP_SYST 146
[2020-03-15] MEDS: ATORVASTATIN 20 MG TABLET PO SCH (21:14)
[2020-03-16 00:13] VITALS: BP_SYST 144
--- NOTE | 2020-03-16 00:55 | NUR ---
PATIENT RESTING, YELLING THAT HE DOES NOT WANT VITALS TAKEN. EXPLAINED TO PATIENT IMPORTANCE. NO SIGNS OF DISTRESS NOTED. WILL CONTINUE TO MONITOR.
[2020-03-16] MEDS: SODIUM BICARBONATE 650 MG TABLET PO SCH ×4 (06:00→21:09)
--- NOTE | 2020-03-16 06:53 | NUR ---
CLOSING NOTES PATIENT IS RESTING, UNHAPPY THAT HE HAS NOT BEEN DISCHARGED TODAY. NO RESPIRATORY DISTRESS NOTED, ROOM AIR. IV SITE PATENT, DRESSINGS C/D/I, SALINE LOCK. PERMACATH AT RIGHT SUBCLAVIAN. SKIN INTACT. CASE MANAGEMENT NOTES STATED THAT PATIENT DID NOT HAVE DIALYSIS CENTER YET AND SO COULD NOT BE DISCHARGED YESTERDAY. CALL LIGHT USED PROPERLY, SANDWICH AND JELLO PROVIDED. BED ALARM ON, BED AT LOWEST POSITION, CALL LIGHT WITHIN REACH. PATIENT REFUSED MEDICATION STATING THAT HE HAS BEEN TAKING SO MANY MEDICATION THAT HE DOES NOT NEED ANY. PATIENT EDUCATION UNSUCCESSFUL. ALL NEEDS MET THROUGHOUT SHIFT. WILL ENDORSE CARE TO ONCOMING SHIFT.
[2020-03-16 08:00] VITALS: BP_SYST 134
[2020-03-16] MEDS: SOD FERRIC GLUC COMPLEX/SUC 125 MG in NS 100 ML IV SCH ×2 (08:00→09:20)
--- NOTE | 2020-03-16 08:00 | NUR ---
Opening Notes Patient is awake, alert and oriented x4. No resp distress noted. Breathing is even and unlabored. Pt denies any pain at this time. Pt is refusing a body assessment at this time. Pt is also refusing IV access monitoring. Patient is agitated and asking for méndez and eggs for breakfast. Will call kitchen. Patient is noted with a shuffling gait, needs supervision. All needs met. Safety and fall precautions in place. Bed in lowest position, alarm on, locked. Will continue to monitor.
[2020-03-16] MEDS: QUEtiapine FUMARATE 25 MG TABLET PO SCH ×2 (09:16→21:09)
[2020-03-16] MEDS: amLODIPine BESYLATE 10 MG TABLET PO SCH (09:16)
[2020-03-16] MEDS: CILOSTAZOL 50 MG TABLET (PLETAL) PO SCH (09:16)
[2020-03-16] MEDS: clonazePAM 0.5 MG TABLET PO SCH ×2 (09:16→21:09)
[2020-03-16] MEDS: LOSARTAN POTASSIUM 25 MG TABLET PO SCH (09:16)
[2020-03-16] MEDS: MULTIVITAMINS TAB 1 TABLET PO SCH (09:16)
[2020-03-16] MEDS: NEPHROVITE, (FOLIC ACID/VITAMIN B COMP W-C 1 TAB) PO SCH (09:16)
[2020-03-16] MEDS: CHOLECALCIFEROL (VITAMIN D3) 2,000 UNIT TABLET PO SCH (09:16)
[2020-03-16] MEDS: METOPROLOL TARTRATE 25 MG TABLET PO SCH ×2 (09:17→21:10)
[2020-03-16] MEDS: SEVELAMER CARBONATE 800 MG TABLET PO SCH ×4 (09:20→17:41)
[2020-03-16] MEDS: CALCIUM ACETATE 667 MG CAP PO SCH ×4 (09:20→17:41)
--- NOTE | 2020-03-16 10:21 | NUR ---
Discharge Planning: DCP faxed patient referral to [facility] (f [phone] p [phone]) DCP to follow up Addendum: 03/16/20 at 1050 by Lorenza BECERRA DCP followed up on patient referral to [facility] (f [phone] p [phone]) DCP spoke to Carol, the DON is out today and Carol is not sure new patients are being accepted. DCP to follow up.
--- NOTE | 2020-03-16 10:38 | NUR ---
Notes Patient is laying down in bed, with eyes closed. No resp distress noted. Breathing is even and unlabored. Pt s/w case management and educated that he will need a scheduled dialysis center to attend prior to discharge. Patient grows agitated saying he wants to be discharged today. Will continue to monitor.
--- NOTE | 2020-03-16 11:30 | NUR ---
Blood Sugar Patients BS was noted at 138 mg/dL. Per sliding scale, no coverage needed at this time. Will continue to monitor.
[2020-03-16 11:58] VITALS: BP_SYST 144
--- NOTE | 2020-03-16 12:24 | NUR ---
Notes Patient is laying in bed, sleeping at this time. No resp distress noted. Breathing is even and unlabored. No signs of pain at this time. Will continue to monitor.
--- NOTE | 2020-03-16 14:15 | NUR ---
Notes Patient is agitated at this time. Pt is upset that he is not leaving today, wants to speak to the doctor again. Will continue to monitor.
[2020-03-16 16:13] VITALS: BP_SYST 152
--- NOTE | 2020-03-16 16:24 | NUR ---
Notes Patient is laying in bed at this time and watching TV. No resp distress noted. Breathing is even and unlabored at this time. Will continue to monitor.
--- NOTE | 2020-03-16 16:35 | NUR ---
P.T. NOTES Pt REFUSED TO PARTICIPATE W/ P.T. AT THIS TIME, STATES "I WANT TO SLEEP! I CAN WALK! LEAVE ME ALONE!"; EXPLAINED RISKS OF BEDBOUND, BED ALARM ON, CALL [facility], PHONE, TABLE IN REACH; IRRITABLE, EASILY ANGRY.
--- NOTE | 2020-03-16 17:30 | NUR ---
Blood Sugar Patients BS was noted at 168 mg/dL. Per sliding scale, administered 2 units of Lispro insulin, tolerated well. Will continue to monitor
[2020-03-16] MEDS: INSULIN LISPRO SLIDING SCALE 100 UNITS/ML VIAL (humaLOG) SUBCUT PRN ×2 (17:40→21:13)
--- NOTE | 2020-03-16 18:11 | NUR ---
Closing Notes Patient is laying in bed, resting at this time and eating dinner independently. Pt has a good appetite. No resp distress noted. Breathing is even and unlabored. Pt denies any pain at this time. IV site on right FA, 20 gauge intact at this time. Dressing clean and dry. Patient is noted with a shuffling gait. All needs met at this time. Safety and fall precautions in place at this time. Call light within reach. Bed in lowest position, alarm on, locked. Will continue to monitor.
--- NOTE | 2020-03-16 19:30 | NUR ---
Pt is resting comfortably in bed. No acute distress noted. No c/o pain or discomfort. Skin is warm and dry to touch. No signs or symptoms of hypoglycemia or hyperglycemia noted. Saline lock in RFA is without any signs of infiltration. Fall and safety precautions are in place.
[2020-03-16 20:00] VITALS: BP_SYST 134
[2020-03-16] MEDS: ATORVASTATIN 20 MG TABLET PO SCH (21:09)
--- NOTE | 2020-03-16 21:13 | NUR ---
Resting quietly in bed. Fall and safety precautions are in place. Humalog Insulin 6 units given SQ for accucheck of 299. Pt ate 1/2 turkey sandwich and 1 cup jello for HS snacks. Skin remains warm and dry to touch.
--- NOTE | 2020-03-16 23:00 | NUR ---
Resting quietly in bed. Fall and safety precautions are in place.
[2020-03-17] VITALS: BP_SYST 153
[2020-03-17] MEDS: cloNIDine HCL 0.2 MG TABLET PO PRN (00:50)
--- NOTE | 2020-03-17 01:00 | NUR ---
Sleeping comfortably in bed. Fall an safety precautions are in place.
--- NOTE | 2020-03-17 03:00 | NUR ---
No respiratory distress noted. Fall and safety precautions are in place.
--- NOTE | 2020-03-17 05:15 | NUR ---
Awake and alert. Given 1/2 turkey sandwich and 1 cup jello per his request. Skin warm and dry to touch.
[2020-03-17] MEDS: SODIUM BICARBONATE 650 MG TABLET PO SCH ×2 (06:10→16:29)
--- NOTE | 2020-03-17 06:51 | NUR ---
Pt is awake and resting comfortably in bed. All pt's needs were attended to this shift. Will endorse to day shift nurse.
[2020-03-17 08:00] VITALS: BP_SYST 146
[2020-03-17] MEDS: SOD FERRIC GLUC COMPLEX/SUC 125 MG in NS 100 ML IV SCH (08:00)
--- NOTE | 2020-03-17 08:28 | NUR ---
alert, oriented, abusive languages, demands reg diet, instead of renal, ( extra food, which kitchen refused to give, secondary to renal diet, regardless how much explained to him. Refused all nursing care, vital signs, pills.
[2020-03-17] MEDS: EPOETIN ALFA 10,000 UNITS/ML VIAL SUBCUT SCH (09:07)
[2020-03-17] MEDS: CALCIUM ACETATE 667 MG CAP PO SCH ×3 (09:08→16:31)
[2020-03-17] MEDS: SEVELAMER CARBONATE 800 MG TABLET PO SCH ×3 (09:08→16:31)
[2020-03-17] MEDS: CILOSTAZOL 50 MG TABLET (PLETAL) PO SCH (09:08)
[2020-03-17] MEDS: amLODIPine BESYLATE 10 MG TABLET PO SCH (09:09)
[2020-03-17] MEDS: METOPROLOL TARTRATE 25 MG TABLET PO SCH ×2 (09:09→21:00)
[2020-03-17] MEDS: NEPHROVITE, (FOLIC ACID/VITAMIN B COMP W-C 1 TAB) PO SCH (09:10)
[2020-03-17] MEDS: CHOLECALCIFEROL (VITAMIN D3) 2,000 UNIT TABLET PO SCH (09:10)
[2020-03-17] MEDS: clonazePAM 0.5 MG TABLET PO SCH ×2 (09:10→21:00)
[2020-03-17] MEDS: LOSARTAN POTASSIUM 25 MG TABLET PO SCH (09:10)
[2020-03-17] MEDS: MULTIVITAMINS TAB 1 TABLET PO SCH (09:11)
[2020-03-17] MEDS: QUEtiapine FUMARATE 25 MG TABLET PO SCH ×2 (09:11→21:00)
[2020-03-17] MEDS: INSULIN LISPRO SLIDING SCALE 100 UNITS/ML VIAL (humaLOG) SUBCUT PRN (12:17)
--- NOTE | 2020-03-17 13:59 | NUR ---
Discharge Planning: DCP followed up on patient referral to [facility] (f [phone] p [phone]) per [facility] the DON is in a meeting DCP laura, JOSEF followed up with [facility] at [facility] ([phone]) DCP re-faxed referral [facility] could not find. DCP to follow up.
--- NOTE | 2020-03-17 16:54 | NUR ---
P.T. NOTES Pt REFUSED TO PARTICIPATE W/ P.T. EVAL AT THIS TIME, FORGETFUL AT TIMES, IRRITABLE, EASILY ANGRY, TENDS TO BE VERBALLY ABUSIVE; EXPLAINED RISKS OF BEDBOUND; CALL MCCRARY, PHONE, TABLE IN REACH, BED ALARM ON; FF UP WHEN PARTICIPATIVE.
--- NOTE | 2020-03-17 17:15 | NUR ---
slept most of the shift, when woke up, asking for food. Non -compliant with [facility] diet, " wants real food, which is regular diet, soda. refused bs this evening, and po meds. Now getting ready for hemodialysis.
--- NOTE | 2020-03-17 19:11 | NUR ---
refused hemodialysis tonite, regardless how much he is talked to, still declined
[2020-03-17] MEDS: ATORVASTATIN 20 MG TABLET PO SCH (21:00)
[2020-03-18] VITALS: BP_SYST 142
[2020-03-18] MEDS: SODIUM BICARBONATE 650 MG TABLET PO SCH ×3 (06:00→21:51)
[2020-03-18] MEDS: CALCIUM ACETATE 667 MG CAP PO SCH ×3 (08:00→18:00)
[2020-03-18] MEDS: SEVELAMER CARBONATE 800 MG TABLET PO SCH ×3 (08:00→18:00)
[2020-03-18] MEDS: SOD FERRIC GLUC COMPLEX/SUC 125 MG in NS 100 ML IV SCH (08:00)
--- NOTE | 2020-03-18 08:00 | NUR ---
PATIENT REFUSED ALL PO MORNING MEDS. PATIENT ALSO REFUSED THE IV MED. PATIENT REFUSED VS TO BE TAKEN. PATIENT WAS EXPLAINED THE IMPORTANCE OF MEDS STILL REFUSED AND DID NOT ALLOW ME TO ASSES HIM OR THE IV SITE. PATIENT STATED HE WANTS TO GO HOME ALREADY, ASKED TO TELL THE DR TO LET HIM GO HOME ALREADY BECAUSE HES BEEN HERE FOR 2 DAYS.
[2020-03-18] MEDS: QUEtiapine FUMARATE 25 MG TABLET PO SCH ×2 (09:00→21:51)
[2020-03-18] MEDS: LOSARTAN POTASSIUM 25 MG TABLET PO SCH (09:00)
[2020-03-18] MEDS: METOPROLOL TARTRATE 25 MG TABLET PO SCH ×2 (09:00→21:52)
[2020-03-18] MEDS: MULTIVITAMINS TAB 1 TABLET PO SCH (09:00)
[2020-03-18] MEDS: CILOSTAZOL 50 MG TABLET (PLETAL) PO SCH (09:00)
[2020-03-18] MEDS: NEPHROVITE, (FOLIC ACID/VITAMIN B COMP W-C 1 TAB) PO SCH (09:00)
[2020-03-18] MEDS: amLODIPine BESYLATE 10 MG TABLET PO SCH (09:00)
[2020-03-18] MEDS: clonazePAM 0.5 MG TABLET PO SCH ×2 (09:00→21:51)
[2020-03-18] MEDS: CHOLECALCIFEROL (VITAMIN D3) 2,000 UNIT TABLET PO SCH (09:00)
--- NOTE | 2020-03-18 12:20 | NUR ---
Pt refused at [facility] for out pt HD due to history of issues w/ conservator. Left message for conservator Jania Simpson [phone] and her line construction supervisor Annia [phone] regarding inability to secure out patient dialysis for the patient.
[2020-03-18] MEDS: INSULIN LISPRO SLIDING SCALE 100 UNITS/ML VIAL (humaLOG) SUBCUT PRN ×2 (12:23→21:56)
--- NOTE | 2020-03-18 14:12 | NUR ---
P.T. NOTES Pt DECLINED TO PARTICIPATE W/ P.T., IRRITABLE, EASILY ANGRY, EXPLAINED RISKS OF BEDBOUND; D/C P.T. EVAL ORDER, WILL AWAIT RE-ORDER WHEN Pt IS WILLING TO PARTICIPATE W/ P.T.; CALL [facility], PHONE, TABLE IN REACH, BED ALARM.
--- NOTE | 2020-03-18 14:37 | NUR ---
Discharge Planning: DCP followed up on patient referral to [facility] (f [phone] p [phone]) per [facility] declined. DCP followed up with [facility] at [facility] ([phone]) declined. DCP faxed pt referral to [facility] (f [phone] p [phone]) DCP to follow up
--- NOTE | 2020-03-18 15:00 | NUR ---
PATIENT TOOK SOME MEDS AND ALLOWED ME TO CHECK HIS BLOOD SUGAR, INSULIN INCLUDED. HE WAS EATING WHEN I ASKED IF I COULD GIVE HIM HIS MEDS.
--- NOTE | 2020-03-18 17:43 | NUR ---
Nutrition F/U RD reviewed pt's current EMR record including diet Hx, physician notes, nursing notes, pertinent labs/meds/procedures, care trends, and care activity. Admission Dx: Renal failure, anemia PMH: HTN, DM, anemia, ESRD, psych per physician notes Pt also found w/ severe malnutrition and uremia per physician notes SARS-CoV-2 Ag (Rapid) Negative 03/11 Current Diet Order/Nutrition Support: Renal, CCHO standard carb- 60 gm, 100 gm protein x5 days Subjective Info: RD met w/ pt at bedside. Pt reported that he has a good appetite, and tends to like everything. Pt requested soda and cake w/ evening meal. RD educated pt on importance of maintaining restrictive dietary restrictions for optimal health -- pt acknowledged, but would still like a soda w/ meal later. RD notified [facility] staff to provide diet lemon native soda w/ pt's dinner tonight. Pt denied any chewing/swallowing problems. Pt attested to last BM was yesterday, no c/o N/V/C/D. Current diet is adequate/appropriate to meet nutritional needs. Pertinent Medications: renvela, phoslo, SSI Pertinent Labs: 03/14 -- BUN 53 H, CRE 8.23 H, BG 133 H, POC BG 239 H, ALB 2.7 L, H/H 8.4 L/23.7 L Skin Integrity Comment: Maxi scale: 22; no skin issues noted Current % PO 90% average x15 meals Estimated Energy Expenditure (kcals/day) 0584-4716 kcal/day (30-35 kcal/kg Adj IBW for ESRD on HD) Estimated Protein Required (g/day) 90-113 gm/day (1.2-1.5 gm/kg Adj IBW for ESRD on HD) Estimated Fluid Required (l/day) Per physician d/t ESRD Problem/Etiology/Signs/Symptoms Altered nutrition-related labs related to endocrine and renal dysfunction as evidenced by abnormal BG, POC BG, BUN, and CRE lab values. *ongoing Expected Outcomes/Goals - Monitor appetite and PO intakes w/ goal of pt meeting at least 80% of estimated nutritional needs, labs trending WNL, normal GI function, and skin integrity/wt maintenance Dietitian Recommendations * Recommend continuing renal, CCHO standard carb-60 gm, 100 gm protein diet Follow Up Low Risk: F/U in 7 days
--- NOTE | 2020-03-18 17:48 | NUR ---
Dietitian Recommendations * Recommend continuing renal, CCHO standard carb-60 gm, 100 gm protein diet LP, RD Please refer to Nutrition F/U for details.
--- NOTE | 2020-03-18 18:25 | NUR ---
PATIENT REFUSED HIS VITALS TO BE TAKEN TODAY. COMES OUT OF ROOM TO ASK FOR DR TO RELEASE HIM. PATIENT ALSO REFUSED EVENING MEDS.
--- NOTE | 2020-03-18 19:30 | NUR ---
INITIAL NOTE PT AWAKE, RESTING IN BED. IV SALINE LOCKED. PT DENIES ANY PAIN OR DISCOMFORT AT THIS TIME. CALL LIGHT WITHIN REACH, BED IN LOW AND LOCKED POSITION.
[2020-03-18 20:00] VITALS: BP_SYST 170
--- NOTE | 2020-03-18 21:30 | NUR ---
MEDICATIONS TAKEN PT COOPERATIVE AND CALM. PT ALLOWED FOR VITAL SIGNS TO BE TAKEN, BSG CHECK AND TOOK ALL SCHEDULED MEDICATIONS. BSG 191, INSULIN COVERAGE ADMINISTERED PER SLIDING SCALE. PROVIDED PT WITH FRESH PITCHER OF ICE WATER AND A SPOON PER REQUEST. WILL CONTINUE TO MONITOR.
[2020-03-18] MEDS: ATORVASTATIN 20 MG TABLET PO SCH (21:51)
[2020-03-19] VITALS: BP_SYST 148
--- NOTE | 2020-03-19 | NUR ---
RN ROUNDS PT ALLOWED FOR MIDNIGHT VITALS TO BE TAKEN. PT CALM AND COOPERATIVE. WILL CONTINUE TO MONITOR.
--- NOTE | 2020-03-19 03:00 | NUR ---
RN ROUNDS NO CHANGE IN ASSESSMENT, WILL CONTINUE TO MONITOR.
--- NOTE | 2020-03-19 04:39 | NUR ---
IV INFILTRATED PT COMPLAINING OF PAIN TO RIGHT PERIPHERAL IV, IV SITE IS WARM, AND TENDER TO TOUCH. PT ALLOWED FOR IV TO BE FLUSHED, IV NOT PATENT AND INFILTRATED. IV CATHETER REMOVED, CATHETER INTACT, NO BLEEDING. EDUCATED PT ON USE AND PURPOSE OF IV ACCESS, PT VERBALIZED UNDERSTANDING, REFUSING IV ACCESS AT THIS TIME. WILL INFORM MD.
[2020-03-19] MEDS: SODIUM BICARBONATE 650 MG TABLET PO SCH ×3 (06:00→21:18)
--- NOTE | 2020-03-19 06:00 | NUR ---
CLOSING NOTE PT REFUSED MORNING MEDICATION AND ACCU CHECK. REINFORCED EDUCATION ON USE AND PURPOSE OF IV ACCESS, PT VERBALIZED UNDERSTANDING, PT REFUSING IV ACCESS AT THIS TIME. CALL LIGHT WITHIN REACH, BED IN LOW AND LOCKED POSITION. WILL CONTINUE TO MONITOR UNTIL PT CARE IS ENDORSED TO MORNING SHIFT RN.
[2020-03-19 08:00] VITALS: BP_SYST 173
[2020-03-19] MEDS: SOD FERRIC GLUC COMPLEX/SUC 125 MG in NS 100 ML IV SCH (08:00)
[2020-03-19] MEDS: EPOETIN ALFA 10,000 UNITS/ML VIAL SUBCUT SCH ×2 (09:00→09:32)
[2020-03-19] MEDS: METOPROLOL TARTRATE 25 MG TABLET PO SCH ×2 (09:27→21:17)
[2020-03-19] MEDS: CILOSTAZOL 50 MG TABLET (PLETAL) PO SCH (09:28)
[2020-03-19] MEDS: amLODIPine BESYLATE 10 MG TABLET PO SCH (09:28)
[2020-03-19] MEDS: NEPHROVITE, (FOLIC ACID/VITAMIN B COMP W-C 1 TAB) PO SCH (09:28)
[2020-03-19] MEDS: clonazePAM 0.5 MG TABLET PO SCH ×2 (09:29→21:18)
[2020-03-19] MEDS: MULTIVITAMINS TAB 1 TABLET PO SCH (09:29)
[2020-03-19] MEDS: SEVELAMER CARBONATE 800 MG TABLET PO SCH ×3 (09:29→17:54)
[2020-03-19] MEDS: CHOLECALCIFEROL (VITAMIN D3) 2,000 UNIT TABLET PO SCH (09:29)
[2020-03-19] MEDS: LOSARTAN POTASSIUM 25 MG TABLET PO SCH (09:30)
[2020-03-19] MEDS: QUEtiapine FUMARATE 25 MG TABLET PO SCH ×2 (09:30→21:18)
[2020-03-19] MEDS: CALCIUM ACETATE 667 MG CAP PO SCH ×3 (09:31→17:54)
--- NOTE | 2020-03-19 09:49 | NUR ---
Spoke w/ consevator Jania Simpson on 03/18-she agreed to sign paperwork in person for Declan Shultz. She is not available 03/19-she will be available on 03/22 to sign paperwork. I called [facility] and spoke to Kasandra. She completed intake for the patient. wigs salesperson for [facility] is Sonia [phone] x [phone]. Reference # for patient is [id number]
[2020-03-19 12:47] VITALS: BP_SYST 185
[2020-03-19] MEDS ORDERED: HEPARIN SODIUM,PORCINE 5,000 UNITS/ML VIAL ONE (12:57)
--- NOTE | 2020-03-19 19:30 | NUR ---
OPENING NOTES: Received report from dayshift nurse. Patient is alert and oriented with no s/s of distress or discomfort. He is ambulatory with assistance on tele monitor. Per dayshift nurse, pt has steady gait and has not had any difficulty ambulating to the bathroom. Patient has permacath on right subclavian for dialysis which was done today with 2.6 L out. Ensured all safety precautions. Bed is locked and in the lowest position with alarm on, call light within reach.
[2020-03-19 20:00] VITALS: BP_SYST 168
--- NOTE | 2020-03-19 20:00 | NUR ---
IV ACCESS: Patient does not have IV access. Educated patient about the purpose of having an IV during his hospitalization. Patient refused to let me start an IV. He states "it hurts too much and I don't want it". Patient will not allow me to look at his arms or touch them.
[2020-03-19] MEDS: ATORVASTATIN 20 MG TABLET PO SCH (21:17)
--- NOTE | 2020-03-19 21:20 | NUR ---
ACCUCHECK: Patient refused to let me do an accucheck. He states he will take his medications but doesn't want to be poked anymore. Patient states "I just want to go home now". Educated patient about the purpose of his being in the hospital, he verbalized understanding and says "maybe I can go home tomorrow". Patient is alert and oriented and in calm mood.
--- NOTE | 2020-03-19 21:25 | NUR ---
MEDICATION ADMINISTRATION: Patient is resting in bed with no s/s of distress or discomfort. Medications administered as ordered by , pt tolerated well. Will continue to monitor patient.
--- NOTE | 2020-03-19 23:00 | NUR ---
RN ROUNDS: patient is laying in bed with no s/s of distress or discomfort. Will continue to monitor patient.
[2020-03-20] VITALS: BP_SYST 158
--- NOTE | 2020-03-20 01:45 | NUR ---
RN ROUNDS: Patient is laying in bed, awake, and in stable condition. He is requesting to have jello which was provided. Bed is in the lowest position and call light within reach. Will continue to monitor.
--- NOTE | 2020-03-20 03:30 | NUR ---
RN ROUNDS: Patient is in bed and appears to be asleep. He is not having any s/s of distress or discomfort. Will continue to monitor.
[2020-03-20] MEDS: SODIUM BICARBONATE 650 MG TABLET PO SCH ×3 (06:00→21:18)
--- NOTE | 2020-03-20 06:36 | NUR ---
ACCUCHECK AND MEDS REFUSED: Patient refused scheduled accucheck and medication despite several attempts. I attempted to educate patient about the importance of scheduled meds and accucheck but he states "I am supposed to go home and don't want anything".
--- NOTE | 2020-03-20 07:30 | NUR ---
CLOSING NOTES: Patient is alert and oriented with no s/s of distress or discomfort. He is ambulatory with assistance and continues on tele monitor. Ensured all safety precautions. Bed is locked and in the lowest position with alarm on, call light within reach. All needs were met throughout shift. Have endorsed to dayshift nurse.
[2020-03-20] MEDS: SEVELAMER CARBONATE 800 MG TABLET PO SCH ×3 (08:00→18:00)
[2020-03-20] MEDS: CALCIUM ACETATE 667 MG CAP PO SCH ×3 (08:00→18:00)
--- NOTE | 2020-03-20 08:00 | NUR ---
initial notes rec patient awake alert, and irritated at this time. resp easy and unlabored. no sob noted. bed to the lowest position and side rails up and locked. call light within reached. perma cath in place with dressing in place.
--- NOTE | 2020-03-20 08:10 | NUR ---
rounds refused vital signs and pre renal meds this am.
[2020-03-20] MEDS: CHOLECALCIFEROL (VITAMIN D3) 2,000 UNIT TABLET PO SCH (09:00)
[2020-03-20] MEDS: amLODIPine BESYLATE 10 MG TABLET PO SCH (09:00)
[2020-03-20] MEDS: MULTIVITAMINS TAB 1 TABLET PO SCH (09:00)
[2020-03-20] MEDS: clonazePAM 0.5 MG TABLET PO SCH ×2 (09:00→21:00)
[2020-03-20] MEDS: LOSARTAN POTASSIUM 25 MG TABLET PO SCH (09:00)
[2020-03-20] MEDS: CILOSTAZOL 50 MG TABLET (PLETAL) PO SCH (09:00)
[2020-03-20] MEDS: METOPROLOL TARTRATE 25 MG TABLET PO SCH ×2 (09:00→21:00)
[2020-03-20] MEDS: NEPHROVITE, (FOLIC ACID/VITAMIN B COMP W-C 1 TAB) PO SCH (09:00)
[2020-03-20] MEDS: QUEtiapine FUMARATE 25 MG TABLET PO SCH ×2 (09:00→21:00)
--- NOTE | 2020-03-20 10:00 | NUR ---
rounds notified dr villeda refusing meds and vital signs when made rounds.
--- NOTE | 2020-03-20 12:23 | NUR ---
rounds refused med and accu check. sleeping at this time.
[2020-03-20 12:43] VITALS: BP_SYST 145
[2020-03-20 16:00] VITALS: BP_SYST 145
--- NOTE | 2020-03-20 18:30 | NUR ---
late entry closing notes pt refused accucheck again, still upset because and asking why he is still here. yells as well . bed to the lowest position and side rails up and locked. pt close to the nurses station. denies pain.
--- NOTE | 2020-03-20 19:20 | NUR ---
Report received from day shift nurse. Pt is fully awake, alert and oriented x4. Pt is lying in bed and not in any distress. Fall and safety precautions are in place.
--- NOTE | 2020-03-20 20:00 | NUR ---
Pt refused to have his vital signs taken. Pt also refused physical assessment. Fall and safety precautions are in place.
[2020-03-20] MEDS: ATORVASTATIN 20 MG TABLET PO SCH (21:00)
--- NOTE | 2020-03-20 21:18 | NUR ---
Pt refused to have his blood sugar checked. Pt also refused all his scheduled medications and still refusing to have his vital signs checked. No acute distress noted.
--- NOTE | 2020-03-20 23:00 | NUR ---
Pt is awake and resting quietly in bed. No c/o pain or discomfort. Call light is with pt and bed is in the lowest/locked positions.
--- NOTE | 2020-03-21 01:32 | NUR ---
Pt is sleeping without any respiratory distress noted. Fall and safety precautions are in place.
[2020-03-21 01:52] VITALS: BP_SYST 137
--- NOTE | 2020-03-21 03:25 | NUR ---
Pt is sleeping comfortably in bed. Fall and safety precautions are in place.
--- NOTE | 2020-03-21 05:00 | NUR ---
Pt is resting quietly in bed. No c/o pain or discomfort. Fall and safety precautions are n place.
[2020-03-21] MEDS: SODIUM BICARBONATE 650 MG TABLET PO SCH ×3 (06:00→22:00)
--- NOTE | 2020-03-21 06:09 | NUR ---
Accucheck 108 and no Insulin coverage needed. Skin is warm and dry to touch. Pt was given 2 cups Jello per his request. Pt refused scheduled Sodium Bicarbonate tablet. Fall and safety precautions are in place.
--- NOTE | 2020-03-21 06:56 | NUR ---
Pt is awake and resting comfortably in bed. All pt's needs were attended to. Fall and safety precautions are in place. Will endorse to day shift nurse.
--- NOTE | 2020-03-21 07:30 | NUR ---
OPENING NOTES: RECEIVED PATIENT FROM CLIENT CARE CONSULTANT NURSE. PATIENT IS AWAKE AND ALERT x4 LAYING DOWN IN BED. PATIENT IS TOLERATING OXYGEN ON ROOM AIR WITH NO SIGNS OF DISTRESS OR SHORTNESS OF BREATH NOTED. PATIENT DENIES ANY PAIN AT THE MOMENT. NO IV SITE NOTED. MD PREVIOUSLY AWARE. PATIENT IN STABLE CONDITION. SAFETY, FALL AND ASPIRATION PRECAUTIONS ARE IN PLACE. BED LOCKED IN LOWEST POSITION WITH CALL LIGHT IN REACH. WILL CONTINUE TO MONITOR PATIENT FOR ANY CHANGES.
[2020-03-21] MEDS: SEVELAMER CARBONATE 800 MG TABLET PO SCH ×3 (08:00→17:04)
[2020-03-21] MEDS: CALCIUM ACETATE 667 MG CAP PO SCH ×3 (08:00→17:04)
[2020-03-21 08:01] VITALS: BP_SYST 150
[2020-03-21] MEDS: QUEtiapine FUMARATE 25 MG TABLET PO SCH ×2 (09:00→21:00)
[2020-03-21] MEDS: CHOLECALCIFEROL (VITAMIN D3) 2,000 UNIT TABLET PO SCH (09:00)
[2020-03-21] MEDS: amLODIPine BESYLATE 10 MG TABLET PO SCH (09:00)
[2020-03-21] MEDS: CILOSTAZOL 50 MG TABLET (PLETAL) PO SCH (09:00)
[2020-03-21] MEDS: clonazePAM 0.5 MG TABLET PO SCH ×2 (09:00→21:00)
[2020-03-21] MEDS: NEPHROVITE, (FOLIC ACID/VITAMIN B COMP W-C 1 TAB) PO SCH (09:00)
[2020-03-21] MEDS: METOPROLOL TARTRATE 25 MG TABLET PO SCH ×2 (09:00→21:00)
[2020-03-21] MEDS: MULTIVITAMINS TAB 1 TABLET PO SCH (09:00)
[2020-03-21] MEDS: LOSARTAN POTASSIUM 25 MG TABLET PO SCH (09:00)
--- NOTE | 2020-03-21 09:00 | NUR ---
MEDICATIONS: PATIENT REFUSED TO TAKE MORNING MEDICATIONS UNTIL HE RECEIVED EGGS, HASHBROWNS, AND SAUSAGE FOR BREAKFAST. CALLED DIETARY TO SEE IF THEY CAN BRING IT. WILL TRY AGAIN AT A LATER TIME.
--- NOTE | 2020-03-21 10:02 | NUR ---
RN ROUNDS: PATIENT IS AWAKE AND ALERT x4 LAYING DOWN IN BED. PATIENT IS TOLERATING OXYGEN ON ROOM AIR WITH NO SIGNS OF DISTRESS OR SHORTNESS OF BREATH NOTED. PATIENT REFUSED TO TAKE HIS MORNING MEDICATIONS DESPITE ME GETTING HIM THE BREAKFAST THAT HE WANTED. PATIENT IN STABLE CONDITION. WILL CONTINUE TO MONITOR PATIENT FOR ANY CHANGES.
[2020-03-21] MEDS: INSULIN LISPRO SLIDING SCALE 100 UNITS/ML VIAL (humaLOG) SUBCUT PRN (11:45)
[2020-03-21 12:20] VITALS: BP_SYST 139
--- NOTE | 2020-03-21 12:21 | NUR ---
RN ROUNDS: PATIENT IS AWAKE AND ALERT x4 LAYING DOWN IN BED. PATIENT IS TOLERATING OXYGEN ON ROOM AIR WITH NO SIGNS OF DISTRESS OR SHORTNESS OF BREATH NOTED. PATIENT REFUSED TO TAKE HIS 1200 MEDICATIONS. EDUCATED PATIENT ON IMPORTANCE OF MEDICATIONS. PATIENT CONTINUED TO REFUSED. PATIENT ALLOWED ME TO CHECK HIS BLOOD SUGAR BUT REFUSED FOR ME TO GIVE HIM 2 UNITS OF INSULIN COVERAGE. PATIENT IS IN STABLE CONDITION. WILL CONTINUE TO MONITOR PATIENT FOR ANY CHANGES.
--- NOTE | 2020-03-21 14:10 | NUR ---
RN ROUNDS: PATIENT IS AWAKE AND ALERT x4 LAYING DOWN IN BED. PATIENT REFUSED HIS SCHEDULED MEDICATIONS. EDUCATED PATIENT ON IMPORTANCE AND PATIENT STATED "NO". PATIENT IS TOLERATING OXYGEN ON ROOM AIR WITH NO SIGNS OF DISTRESS OR SHORTNESS OF BREATH NOTED. PATIENT IN STABLE CONDITION. WILL CONTINUE TO MONITOR PATIENT FOR ANY CHANGES.
--- NOTE | 2020-03-21 16:17 | NUR ---
RN ROUNDS: PATIENT IS AWAKE AND ALERT x4 LAYING DOWN IN BED. PATIENT HAS HIGH BLOOD PRESSURE OF 150/118. PATIENT REFUSES TO TAKE HIS PRN BLOOD PRESSURE MEDICINE. EDUCATED PATIENT ON THE IMPORTANCE AND HE BECAME ANGRY. PATIENT IS REFUSING TO LET ME CHECK HIS BLOOD SUGAR. PATIENT IS TOLERATING OXYGEN ON ROOM AIR WITH NO SIGNS OF DISTRESS OR SHORTNESS OF BREATH NOTED. PATIENT IN STABLE CONDITION. WILL CONTINUE TO MONITOR PATIENT.
[2020-03-21 16:28] VITALS: BP_SYST 150
--- NOTE | 2020-03-21 18:36 | NUR ---
CLOSING NOTES: PATIENT IS AWAKE AND ALERT x4 LAYING DOWN IN BED. PATIENT IS TOLERATING OXYGEN ON ROOM AIR WITH NO SIGNS OF DISTRESS OR SHORTNESS OF BREATH NOTED. PATIENT DENIES ANY PAIN AT THE MOMENT. NO IV SITE NOTED. MD PREVIOUSLY AWARE. PATIENT IN STABLE CONDITION. SAFETY, FALL AND ASPIRATION PRECAUTIONS REMAINED IN PLACE THROUGHOUT THE SHIFT. BED LOCKED IN LOWEST POSITION WITH CALL LIGHT IN REACH. WILL ENDORSE PATIENT CARE TO ONCOMING CONSTRUCTION TRADES CONTRACTOR NURSE.
--- NOTE | 2020-03-21 19:15 | NUR ---
Bedside report received from day shift nurse. Pt is lying in bed fully awake, alert and oriented x4. No acute distress noted at this time. Fall and safety precautions are in place.
--- NOTE | 2020-03-21 20:00 | NUR ---
Pt refused to have his vital signs taken and refused physical assessment.
[2020-03-21] MEDS: ATORVASTATIN 20 MG TABLET PO SCH (21:00)
--- NOTE | 2020-03-21 21:29 | NUR ---
Pt is still refusing accucheck and scheduled medication. Addendum: 03/24/20 at 0027 by Senait Anne RN Wrong entry date. Please disregard.
--- NOTE | 2020-03-21 21:30 | NUR ---
Pt refused accucheck and all his scheduled medications.
--- NOTE | 2020-03-21 23:30 | NUR ---
Pt is awake and not in any distress. Fall and safety precautions are in place.
--- NOTE | 2020-03-22 01:00 | NUR ---
Pt is sleeping without any respiratory distress noted. Fall and safety precautions are in place.
--- NOTE | 2020-03-22 02:30 | NUR ---
2 1/2 turkey sandwiches and 2 cups jello given to pt per his request.
--- NOTE | 2020-03-22 04:30 | NUR ---
Pt is sleeping without any distress. Fall and safety precautions are in place.
[2020-03-22] MEDS: SODIUM BICARBONATE 650 MG TABLET PO SCH ×3 (06:00→21:00)
--- NOTE | 2020-03-22 06:25 | NUR ---
Pt refused accucheck, 0600 Sodium Bicarbonate tablet and AM Lab draw. No acute distress noted. Fall and safety precautions are in place.
[2020-03-22] MEDS: SEVELAMER CARBONATE 800 MG TABLET PO SCH ×3 (08:15→17:57)
[2020-03-22] MEDS: CALCIUM ACETATE 667 MG CAP PO SCH ×3 (08:15→17:57)
[2020-03-22] MEDS: clonazePAM 0.5 MG TABLET PO SCH ×2 (08:15→20:59)
[2020-03-22] MEDS: CHOLECALCIFEROL (VITAMIN D3) 2,000 UNIT TABLET PO SCH (08:16)
[2020-03-22] MEDS: NEPHROVITE, (FOLIC ACID/VITAMIN B COMP W-C 1 TAB) PO SCH (08:16)
[2020-03-22] MEDS: CILOSTAZOL 50 MG TABLET (PLETAL) PO SCH (08:16)
[2020-03-22] MEDS: QUEtiapine FUMARATE 25 MG TABLET PO SCH ×2 (08:16→20:59)
[2020-03-22] MEDS: MULTIVITAMINS TAB 1 TABLET PO SCH (08:16)
[2020-03-22] MEDS: LOSARTAN POTASSIUM 25 MG TABLET PO SCH (08:23)
[2020-03-22] MEDS: amLODIPine BESYLATE 10 MG TABLET PO SCH (08:24)
[2020-03-22] MEDS: METOPROLOL TARTRATE 25 MG TABLET PO SCH ×2 (08:24→20:59)
--- NOTE | 2020-03-22 08:25 | NUR ---
Notes- Awake, just eat breakfast. take all his morning meds. Dialysis nurse here to do dialysis.
[2020-03-22] MEDS ORDERED: HEPARIN SODIUM,PORCINE 5,000 UNITS/ML VIAL IVP ONE (10:45)
--- NOTE | 2020-03-22 10:58 | NUR ---
HIGH ALERT NOTE: Called Dr. Delaney back at identified within the medical roster to verify physician authenticity.
[2020-03-22 12:02] VITALS: BP_SYST 141
--- NOTE | 2020-03-22 13:30 | NUR ---
notes- Eating lunch, dialysis done with 2.5L out. No distress noted.
[2020-03-22] MEDS: EPOETIN ALFA 10,000 UNITS/ML VIAL SUBCUT SCH (14:30)
--- NOTE | 2020-03-22 15:46 | NUR ---
Spoke w/ Goldy at [facility]-they have no open times for dialysis patients, the patient can be put on a waiting list only. Spoke w/ [facility]-[phone]-they are working on an accepting dialysis unit for the patient. Spoke w/ Jania Simpson-conservator for the patient-referred her to [facility] regarding completion of paperwork needed.
[2020-03-22 18:09] VITALS: BP_SYST 130
--- NOTE | 2020-03-22 19:15 | NUR ---
CHANGE OF SHIFT; pt. sleeping when received. no resp. distress. pt. room close to nurses station.
--- NOTE | 2020-03-22 20:45 | NUR ---
NOTES; pt. awakened. asked permission if VS can be taken , refused and also medications. awake, alert and oriented, asking when he is being discharge. rt. subclavian permacth intact for dialysis. HD done today. denies any pain nor discomfort. call light within reach.
[2020-03-22] MEDS: ATORVASTATIN 20 MG TABLET PO SCH (20:59)
--- NOTE | 2020-03-22 23:00 | NUR ---
NOTES: pt. awake and calm. call within reach. no further complaints.
[2020-03-23 00:16] VITALS: BP_SYST 130
[2020-03-23 00:17] VITALS: BP_SYST 118
--- NOTE | 2020-03-23 00:40 | NUR ---
NOTES: pt. sleeping, no distress. PRODUCT/INDUSTRY CONSULTANT able to check VS.
--- NOTE | 2020-03-23 02:45 | NUR ---
NOTES: pt. awake asking for more food, sandwich and 2 jellos given.
--- NOTE | 2020-03-23 04:00 | NUR ---
NOTES: pt. checked and went back to sleep. condition unchanged.
--- NOTE | 2020-03-23 05:45 | NUR ---
NOTES: pt. awake already, pt. refused med and accu check. no complaints.
[2020-03-23] MEDS: SODIUM BICARBONATE 650 MG TABLET PO SCH ×3 (06:00→21:29)
--- NOTE | 2020-03-23 06:45 | NUR ---
CLOSING NOTES; no complaints. had a fair night. for further assist. will endorse to day shift.
[2020-03-23] MEDS: SEVELAMER CARBONATE 800 MG TABLET PO SCH ×2 (08:00→12:00)
[2020-03-23] MEDS: CALCIUM ACETATE 667 MG CAP PO SCH ×2 (08:00→12:00)
--- NOTE | 2020-03-23 08:00 | NUR ---
PATIENT ASLEEP IN BED. REFUSED TO GET MORNING VITALS AND MEDICATIONS. SAID HE WAS STILL RESTING.
[2020-03-23] MEDS: amLODIPine BESYLATE 10 MG TABLET PO SCH (09:00)
[2020-03-23] MEDS: MULTIVITAMINS TAB 1 TABLET PO SCH (09:00)
[2020-03-23] MEDS: NEPHROVITE, (FOLIC ACID/VITAMIN B COMP W-C 1 TAB) PO SCH (09:00)
[2020-03-23] MEDS: CILOSTAZOL 50 MG TABLET (PLETAL) PO SCH (09:00)
[2020-03-23] MEDS: CHOLECALCIFEROL (VITAMIN D3) 2,000 UNIT TABLET PO SCH (09:00)
[2020-03-23] MEDS: QUEtiapine FUMARATE 25 MG TABLET PO SCH ×2 (09:00→20:53)
[2020-03-23] MEDS: clonazePAM 0.5 MG TABLET PO SCH ×2 (09:00→20:52)
[2020-03-23] MEDS: METOPROLOL TARTRATE 25 MG TABLET PO SCH ×2 (09:00→20:53)
[2020-03-23] MEDS: LOSARTAN POTASSIUM 25 MG TABLET PO SCH (09:00)
--- NOTE | 2020-03-23 09:30 | NUR ---
PATIENT AWAKE, GOT UP TO USED RESTROOM. STILL DID NOT ALLOW ME TO TAKE VITALS AND REFUSED MEDICATIONS WHEN ASKED IF I COULD GIVE THEM TO HIM NOW.
[2020-03-23 12:35] VITALS: BP_SYST 147
[2020-03-23 16:39] VITALS: BP_SYST 160
--- NOTE | 2020-03-23 18:12 | NUR ---
PATIENT REFUSED BLOOD GLUCOSE TO BE CHECKED WELL OTHER MEDS. PATIENT ASKING IF HE CAN GO HOME. NO PAIN OR DISCOMFORT. PATIENT JUST NOT COOPERATIVE.
--- NOTE | 2020-03-23 19:05 | NUR ---
Late Entry due to patient care: Bedside report received from day shift nurse. Pt is lying in bed fully awake, alert and oriented x4. No c/o pain or discomfort and no acute distress noted at this time. Fall and safety precautions are in place.
--- NOTE | 2020-03-23 20:00 | NUR ---
Pt is resting quietly in bed. Pt refused to have his vital signs taken and also refused physical assessment.
[2020-03-23] MEDS: ATORVASTATIN 20 MG TABLET PO SCH (20:52)
--- NOTE | 2020-03-23 21:00 | NUR ---
Pt continues to rest quietly in bed. Pt refused accucheck and all his scheduled medications. Pt stated, "I should have gone home last ." Fall and safety precautions are in place.
--- NOTE | 2020-03-23 21:29 | NUR ---
Pt is still refusing accucheck and scheduled medications. No acute distress noted at this time. Fall and safety precautions are in place.
--- NOTE | 2020-03-23 23:00 | NUR ---
Pt is awake and not in any distress. Fall and safety precautions are in place.
--- NOTE | 2020-03-24 | NUR ---
Pt refused to have his vital signs taken. No acute distress noted at this time. Fall and safety precautions are in place.
[2020-03-24] MEDS: SODIUM BICARBONATE 650 MG TABLET PO SCH ×3 (06:00→21:26)
--- NOTE | 2020-03-24 06:20 | NUR ---
Closing notes Pt awake, resting in bed. BS checked 99. Pt refused PO meds, educated re risks and benefit. R. subclavian permacath dressing C/D/I. Call light within reach. Bed low, locked, siderails up x2. To endorse to AM nurse.
--- NOTE | 2020-03-24 07:05 | NUR ---
RN OPENING NOTE REPORT WAS ENDORSED BY NIGHT NURSE PATIENTS APPEARS TO BE RESTING BREATHING IS EQUAL AND NON LABORED. PATIENT HAS ALL SAFETY PRECAUTIONS IN PLACE. PATIENT IS CLOSE TO NURSES STATION. PATIENT HAS CALL LIGHT WITH HER. PATIENT HAS NO OTHER NEEDS AT THIS TIME.
[2020-03-24] MEDS: CALCIUM ACETATE 667 MG CAP PO SCH ×3 (08:00→17:14)
[2020-03-24] MEDS: SEVELAMER CARBONATE 800 MG TABLET PO SCH ×3 (08:00→17:14)
[2020-03-24] MEDS: METOPROLOL TARTRATE 25 MG TABLET PO SCH ×2 (08:22→21:00)
[2020-03-24] MEDS: clonazePAM 0.5 MG TABLET PO SCH ×2 (08:22→21:00)
[2020-03-24] MEDS: NEPHROVITE, (FOLIC ACID/VITAMIN B COMP W-C 1 TAB) PO SCH (08:22)
[2020-03-24] MEDS: MULTIVITAMINS TAB 1 TABLET PO SCH (08:22)
[2020-03-24] MEDS: LOSARTAN POTASSIUM 25 MG TABLET PO SCH (08:22)
[2020-03-24] MEDS: EPOETIN ALFA 10,000 UNITS/ML VIAL SUBCUT SCH (08:23)
[2020-03-24] MEDS: CHOLECALCIFEROL (VITAMIN D3) 2,000 UNIT TABLET PO SCH (08:23)
[2020-03-24] MEDS: CILOSTAZOL 50 MG TABLET (PLETAL) PO SCH (08:23)
[2020-03-24] MEDS: QUEtiapine FUMARATE 25 MG TABLET PO SCH ×2 (08:23→21:00)
[2020-03-24] MEDS: amLODIPine BESYLATE 10 MG TABLET PO SCH (08:23)
--- NOTE | 2020-03-24 08:31 | NUR ---
REFUSAL OF MEDICATION/VITAL SIGNS PATIENT IS REFUSING ALL MEDICATIONS, AND VITAL SIGNS. PATIENT IS AWAKE AND ALERT NO SIGNS OF ANY DISTRESS,BREATHING IS EQUAL AND NON LABORED. PATIENT WAS EDUCATED ON IMPORTANCE OF CARE BUT IS STILL REFUSING. PATIENT HAS ALL SAFETY PRECAUTIONS IN PLACE. CALL LIGHT IS WITH HIM EDUCATED TO USE FOR ASSISTANCE. PATIENT IS CLOSE TO NURSES STATION. NO OTHER NEEDS AT THIS TIME.
--- NOTE | 2020-03-24 10:00 | NUR ---
DIALYSIS PATIENT IS CURRENTLY RECEIVING DIALYSIS. PATIENT HAS NO OTHER NEEDS AT THIS TIME. ALL SAFETY PRECAUTIONS IN PLACE.
--- NOTE | 2020-03-24 11:33 | NUR ---
ACCU CHECK Addendum: 03/24/20 at 1237 by Tiffanie Rhoades RN ACCU CHECK WAS ABLE TO BE DONE WITH HEMODIALYSIS BLOOD. PATIENT IS REFUSING INSULIN EDUCATED PATIENT BUT IS STILL REFUSING. PATIENT EDUCATED TAPE SEWER LIGHT, CALL LIGHT IS WITH PATIENT. NO SIGNS OF ANY DISTRESS. BREATHING IS EQUAL AND NON LABORED. PATIENT HAS NO OTHER NEEDS AT THIS TIME. PATIENT IS CLOSE TO NURSES STATION.
[2020-03-24] MEDS ORDERED: HEPARIN SODIUM,PORCINE 5,000 UNITS/ML VIAL ONE (12:08)
--- NOTE | 2020-03-24 12:09 | NUR ---
HIGH ALERT NOTE: Called Dr. Delaney back at [phone] identified within the medical roster to verify physician authenticity.
[2020-03-24] MEDS ORDERED: HEPARIN SODIUM,PORCINE 5,000 UNITS/ML VIAL MC ONE (12:15)
[2020-03-24 12:16] VITALS: BP_SYST 150
--- NOTE | 2020-03-24 12:34 | NUR ---
HEMODIALYSIS PATIENT FINISHED HIS HEMODIALYSIS THE HEMODIALYSIS NURSE ADMINISTER HEPARIN TO PORTS PER ORDER. SHE STATED SHE REMOVED 2 LITERS. PATIENT IS AWAKE AND ALERT, REFUSING ALL OTHER MEDICATION, AND VITAL SIGNS. PATIENT WAS EDUCATED ON IMPORTANCE BUT IS STILL REFUSING. PATIENT IS CLOSE TO NURSES STATION. CALL LIGHT IS WITH HIM EDUCATED TO USE FOR ASSISTANCE PATIENT HAS NO OTHER NEEDS AT THIS TIME.
--- NOTE | 2020-03-24 12:48 | NUR ---
Spoke w/ Sonia Morales at [facility] [phone]-she is coordinator for Declan and Jorje-currently no chair times at these 2 facilities-she will refer pt to [facility] and [facility] for possible chair time for HD. Information requested was sent to
--- NOTE | 2020-03-24 14:00 | NUR ---
rn roundcaitlyn patient is upset wants to leave i explained to him he has to have a chair for hemodialysis before he can leave. we currently do not have a place for him to get his hemodialysis. patient is frustrated and does not understand. patient educated substation designer light, call light is with patient. patient is close to nurses station. no other need sat this time.
--- NOTE | 2020-03-24 16:35 | NUR ---
rn rounding Patient is awake and sitting up in bed. patient is upset states he does not want to stay here another night. informed him we are looking for a bed for his hemodialysis to be done outside of the hospital. he doesn't understand why he cant go back to [facility]. tried to reorient that there has to be a chair for him first. he is close to nurses station. still refusing all medications. patient educated acquisition specialist light for assistance. call light is with him. no other needs at this time.
--- NOTE | 2020-03-24 17:14 | NUR ---
acuu check patient is refusing accu check and medication at this time. patient was educated on the importance of monitoring blood sugar and taking his medication. patient still is refusing. patient has call light with him educated to use call light for assistance. no other needs at this time. close to nurses station. all safety precautions in place.
--- NOTE | 2020-03-24 19:41 | NUR ---
rn closing note patient appears to be resting both eyes closed no signs of any distress. report was endorsed to night nurse. patient has all safety precautions in place. patient is close to nurses station. no other needs at this time.
[2020-03-24 21:00] VITALS: BP_SYST 123
[2020-03-24] MEDS: ATORVASTATIN 20 MG TABLET PO SCH (21:00)
--- NOTE | 2020-03-24 21:20 | NUR ---
Opening notes Pt asleep, easily awakens, VSS, afebrile. R. subclavian permacath dressing C/D/I. Call light within reach. Bed low, locked, siderails up x2. To monitor.
[2020-03-24] MEDS: INSULIN LISPRO SLIDING SCALE 100 UNITS/ML VIAL (humaLOG) SUBCUT PRN (21:24)
--- NOTE | 2020-03-24 21:24 | NUR ---
Med pass/Blood sugar Pt asleep, resting in bed, easily awakens. BS checked 152, pt refused insulin coverage and PO meds. Educated pt w/ compliance w/ meds, but pt still refused. Call light within reach. To monitor.
[2020-03-25] VITALS: BP_SYST 90
--- NOTE | 2020-03-25 00:30 | NUR ---
Rounds Pt asleep, no s/s distress noted. VSS. Call light within reach. To monitor.
[2020-03-25] MEDS: SODIUM BICARBONATE 650 MG TABLET PO SCH ×3 (06:00→21:26)
[2020-03-25 07:49] VITALS: BP_SYST 107
[2020-03-25] MEDS: CALCIUM ACETATE 667 MG CAP PO SCH ×3 (08:00→17:32)
[2020-03-25] MEDS: SEVELAMER CARBONATE 800 MG TABLET PO SCH ×3 (08:00→17:32)
--- NOTE | 2020-03-25 08:27 | NUR ---
PT ATE BREAKFAST, OFFRE Addendum: 03/25/20 at 827 by Shawn Trejo RN PT ATE BREAKFAST, OFFERED AM MEDS, M Addendum: 03/25/20 at 827 by Shawn Trejo RN PATIENT REFUSED NA
[2020-03-25] MEDS: amLODIPine BESYLATE 10 MG TABLET PO SCH (08:43)
[2020-03-25] MEDS: NEPHROVITE, (FOLIC ACID/VITAMIN B COMP W-C 1 TAB) PO SCH (08:43)
[2020-03-25] MEDS: clonazePAM 0.5 MG TABLET PO SCH ×2 (08:43→21:00)
[2020-03-25] MEDS: LOSARTAN POTASSIUM 25 MG TABLET PO SCH (08:43)
[2020-03-25] MEDS: METOPROLOL TARTRATE 25 MG TABLET PO SCH ×2 (08:43→21:18)
[2020-03-25] MEDS: MULTIVITAMINS TAB 1 TABLET PO SCH (08:43)
[2020-03-25] MEDS: CILOSTAZOL 50 MG TABLET (PLETAL) PO SCH (08:43)
[2020-03-25] MEDS: CHOLECALCIFEROL (VITAMIN D3) 2,000 UNIT TABLET PO SCH (08:44)
[2020-03-25] MEDS: QUEtiapine FUMARATE 25 MG TABLET PO SCH ×2 (08:44→21:00)
--- NOTE | 2020-03-25 10:31 | NUR ---
PT SLEEPING, NO S/S OF PAIN, NO SOB.
--- NOTE | 2020-03-25 12:00 | NUR ---
PT REFUSED BLOOD SUGAR CHECK. ALSO OFFERED 12 NN MEDS. PT REFUSED ALSO.
--- NOTE | 2020-03-25 12:38 | NUR ---
Nutrition F/U RD reviewed pt's current EMR record including diet Hx, physician notes, nursing notes, pertinent labs/meds/procedures, care trends, and care activity. Admission Dx: Renal failure, anemia PMH: HTN, DM, anemia, ESRD, psych per physician notes Pt also found w/ severe malnutrition and uremia per physician notes SARS-CoV-2 Ag (Rapid) Negative 03/11 Current Diet Order/Nutrition Support: Renal, CCHO standard carb- 60 gm, 100 gm protein x12 days Subjective Info: Per EMR review, pt continues w/ good appetite, generally eating 100% of meals since last RD visit. Physician notes indicate that pt has been refusing meds but otherwise has been doing well; awaiting placement at dialysis center; last BM x1 03/23. New documented wt of 188#/85 kg (03/25); wt fluctuations may be attributed to fluid shifts a/w ESRD. Current diet is adequate/appropriate to meet nutritional needs. Pertinent Medications: Reviewed Pertinent Labs: No new labs since 03/14 -- BUN 53 H, CRE 8.23 H, BG 133 H, ALB 2.7 L, H/H 8.4 L/23.7 L; only current lab is POC BG 99 WNL (03/25) Skin Integrity Comment: Maxi scale: 18; no skin issues noted Current % PO 90% average x15 meals Estimated Energy Expenditure (kcals/day) 0466-0136 kcal/day (30-35 kcal/kg Adj IBW for ESRD on HD) Estimated Protein Required (g/day) 90-113 gm/day (1.2-1.5 gm/kg Adj IBW for ESRD on HD) Estimated Fluid Required (l/day) Per physician d/t ESRD Problem/Etiology/Signs/Symptoms Altered nutrition-related labs related to endocrine and renal dysfunction as evidenced by abnormal BG, POC BG, BUN, and CRE lab values. *ongoing Expected Outcomes/Goals - Monitor appetite and PO intakes w/ goal of pt meeting at least 80% of estimated nutritional needs, labs trending WNL, normal GI function, and skin integrity/wt maintenance Dietitian Recommendations * Recommend continuing renal, CCHO standard carb-60 gm, 100 gm protein diet Follow Up Low Risk: F/U in 7 days
--- NOTE | 2020-03-25 12:41 | NUR ---
Dietitian Recommendations * Recommend continuing renal, CCHO standard carb-60 gm, 100 gm protein diet LP, RD Please refer to Nutrition F/U for details.
--- NOTE | 2020-03-25 17:42 | NUR ---
PT REFUSED PM MEDS AND B;OOD SUGAR CHECK. EXPLAINED TO PT NEED FOR COMPLIANCE WITH MEDICATION AND BLOOD SUGAR CHECKS. PT NEED FURTHER INSTRUCTION. PT IS NON COMPLIANT.
--- NOTE | 2020-03-25 18:15 | NUR ---
CLOSING NOTES, PT IS STABLE, NO C/O PAIN, NO SOB NOTED. PT REFUSED ALL MEDS AND FINGERSTICK BS. REFUSED VITALS TO BE TAKEN BY LABEL DESIGNER THIS AFTERNOON., DR REESE WAS HERE AND MADE AWARE THAT WE ARE WAITING FOR A DIALYSIS CHAIR FOR THE PT. WILL ENDORSE TO NIGHT NURSE.
[2020-03-25 20:10] VITALS: BP_SYST 199
--- NOTE | 2020-03-25 20:10 | NUR ---
Opening notes Pt AAOx4, BP elevated 199/109, pt agitated and wants to take a shower. Educated pt that he has a dialysis line and offered bed bath but pt refused. R. chest permacath dressing C/D/I. No IV access. Updated pt w/ plan of care for dialysis tomorrow. Call [facility] within reach. To monitor.
[2020-03-25] MEDS: ATORVASTATIN 20 MG TABLET PO SCH (21:00)
[2020-03-25] MEDS: cloNIDine HCL 0.2 MG TABLET PO PRN (21:18)
--- NOTE | 2020-03-26 00:10 | NUR ---
Rounds Pt awake, resting in bed, VSS. No s/s distress noted. Call light within reach. Bed low, locked, siderails up x2. To monitor.
[2020-03-26 00:40] VITALS: BP_SYST 109
--- NOTE | 2020-03-26 02:20 | NUR ---
Rounds Pt awake, resting in bed, no s/s distress noted. Call light within reach. Safety maintained. To monitor.
[2020-03-26] MEDS: SODIUM BICARBONATE 650 MG TABLET PO SCH ×3 (06:00→21:58)
--- NOTE | 2020-03-26 06:30 | NUR ---
Closing notes Pt awake, no s/s distress. BS checked 142. No IV access, MD aware. Call light within reach. Bed low, locked, siderails up x2. To monitor.
[2020-03-26 07:08] LABS: BASOPHILS # (AUTO) 0.1 K/uL (0.0-0.2); BASOPHILS % (AUTO) 0.8 % (0.0-2.0); EOSINOPHILS # (AUTO) 0.3 K/uL (0.0-0.4); HEMATOCRIT 27.4 % (36-54); HEMOGLOBIN 9.4 g/dL (14.0-18.0); LYMPHOCYTES # (AUTO) 2.4 K/uL (1.0-5.5); LYMPHOCYTES % (AUTO) 35.8 % (20.5-51.5); MEAN CORPUSCULAR HEMOGLOBIN 32 pg (27-31); MEAN CORPUSCULAR HGB CONC 35 % (32-36); MEAN CORPUSCULAR VOLUME 92 fL (79.0-98.0); MONOCYTES # (AUTO) 0.5 K/uL (0.0-1.0); MONOCYTES % (AUTO) 7.8 % (1.7-9.3); NEUTROPHILS # (AUTO) 3.4 K/uL (1.8-7.7); NEUTROPHILS % (AUTO) 50.6 % (40.0-70.0); PLATELET COUNT (AUTO) 231 K/uL (130-430); RED BLOOD CELL COUNT(AUTO) 2.98 MIL/uL (4.2-6.2); RED CELL DISTRIBUTION WIDTH 16.6 % (9.0-15.0); WHITE BLOOD COUNT (AUTO) 6.8 K/uL (4.8-10.8)
[2020-03-26 07:29] LABS: ALBUMIN 3.2 g/dL (3.4-4.8); CALCIUM 8.6 mg/dL (8.4-11.0); POTASSIUM 5.6 mmol/L (3.5-5.1); TOTAL BILIRUBIN 0.3 mg/dL (0.0-1.0)
[2020-03-26 07:36] LABS: CREATININE 11.12 mg/dL (0.55-1.30)
[2020-03-26 07:47] VITALS: BP_SYST 165
--- NOTE | 2020-03-26 07:50 | NUR ---
ELIE NOTES, RECEIVED PT IN BED, PT IS AAOX2, DENIES PAIN, NO SOB, NO RESP DISTRESS. VITALS WNL, BP ELEVATED, PT WILL HAVE HD TODAY.
[2020-03-26] MEDS: SEVELAMER CARBONATE 800 MG TABLET PO SCH ×3 (08:00→17:48)
[2020-03-26] MEDS: CALCIUM ACETATE 667 MG CAP PO SCH ×3 (08:00→17:48)
[2020-03-26] MEDS: clonazePAM 0.5 MG TABLET PO SCH ×2 (08:45→21:00)
[2020-03-26] MEDS: LOSARTAN POTASSIUM 25 MG TABLET PO SCH (08:45)
[2020-03-26] MEDS: CHOLECALCIFEROL (VITAMIN D3) 2,000 UNIT TABLET PO SCH (08:46)
[2020-03-26] MEDS: MULTIVITAMINS TAB 1 TABLET PO SCH (08:46)
[2020-03-26] MEDS: CILOSTAZOL 50 MG TABLET (PLETAL) PO SCH (08:46)
[2020-03-26] MEDS: QUEtiapine FUMARATE 25 MG TABLET PO SCH ×2 (08:46→21:00)
[2020-03-26] MEDS: METOPROLOL TARTRATE 25 MG TABLET PO SCH ×2 (08:46→21:00)
[2020-03-26] MEDS: amLODIPine BESYLATE 10 MG TABLET PO SCH (08:46)
[2020-03-26] MEDS: NEPHROVITE, (FOLIC ACID/VITAMIN B COMP W-C 1 TAB) PO SCH (08:46)
[2020-03-26] MEDS: EPOETIN ALFA 10,000 UNITS/ML VIAL SUBCUT SCH (08:47)
[2020-03-26] MEDS ORDERED: HEPARIN SODIUM,PORCINE 5,000 UNITS/ML VIAL MC ONE (11:45)
--- NOTE | 2020-03-26 11:45 | NUR ---
HIGH ALERT NOTE: Called Dr. DURAN back at [phone] identified within the medical roster to verify physician authenticity.
[2020-03-26 12:00] VITALS: BP_SYST 142
--- NOTE | 2020-03-26 14:00 | NUR ---
PT'S HD COMPLETED, PER HD RN CARBAJAL, OUTPUT IS 2 LI.
[2020-03-26 16:00] VITALS: BP_SYST 147
--- NOTE | 2020-03-26 16:23 | NUR ---
PT RESTING IN BED, NO S/S OF PAIN, NO C/O PAIN. WILL CONT TO MONITOR.
--- NOTE | 2020-03-26 18:51 | NUR ---
CLOSING NOTES, PT HAS BEEN STABLE, NO C/O PAIN, NO SOB. NO RESP DISTRESS. PT REFUSED BLOOD SUGAR CHECKS, PT HAD HD WITH 2000 CC OUTPUT. PT REFUSED MEDICATIONS THE WHOLE SHIFT. WILL ENDORSE TO NIGHT NURSE.
--- NOTE | 2020-03-26 19:45 | NUR ---
OPENING NOTE RECEIVED PATIENT AWAKE, AOX2, WATCHING TV. RESPIRATIONS EVEN AND UNLABORED ON ROOM AIR. PATIENT REFUSING VITAL SIGNS AT THIS TIME. PATIENT HAS NO IV ACCESS MD AWARE. SAFETY AND FALL PRECAUTIONS IN PLACE. BED LOCKED IN LOW POSITION. PATIENT REFUSING BED ALARM AT THIS TIME. WILL CONTINUE TO MONITOR.
[2020-03-26] MEDS: ATORVASTATIN 20 MG TABLET PO SCH (21:00)
--- NOTE | 2020-03-26 21:15 | NUR ---
MEDICATION PASS PATIENT REFUSING ACCUCHECK AND MEDICATIONS AT THIS TIME DESPITE EDUCATION.
[2020-03-27] VITALS: BP_SYST 140
--- NOTE | 2020-03-27 02:30 | NUR ---
RN ROUNDS PATIENT SLEEPING IN BED, NO SIGNS OF DISTRESS NOTED.
[2020-03-27] MEDS: SODIUM BICARBONATE 650 MG TABLET PO SCH ×3 (06:00→21:44)
--- NOTE | 2020-03-27 06:30 | NUR ---
CLOSING NOTE PATIENT REFUSED ALL MEDICATIONS THROUGHOUT SHIFT DESPITE EDUCATION. PATIENT AWAKE WATCHING TV WITH NO SIGNS OF DISTRESS NOTED AT THIS TIME. SAFETY AND FALL PRECAUTIONS REMAIN IN PLACE. BED LOCKED IN LOW POSITION WITH CALL LIGHT IN REACH. WILL CONTINUE TO MONITOR UNTIL ENDORSED TO AM NURSE.
[2020-03-27 07:37] VITALS: BP_SYST 164
--- NOTE | 2020-03-27 07:46 | NUR ---
OPENING NOTES, RECEIVED PT IN BED, PT IS AAOX4, DENIES PAIN, NO SOB, NO RESP DISTRESS, NO FEVER.BP ELEVATED WILL OFFER BP MEDS. PT HAS BEEN KNOW TO REFUSE MEDICATIONS. WILL CONT TO MONITOR.
[2020-03-27] MEDS: QUEtiapine FUMARATE 25 MG TABLET PO SCH ×2 (08:59→21:00)
[2020-03-27] MEDS: LOSARTAN POTASSIUM 25 MG TABLET PO SCH (09:00)
[2020-03-27] MEDS: amLODIPine BESYLATE 10 MG TABLET PO SCH (09:00)
[2020-03-27] MEDS: clonazePAM 0.5 MG TABLET PO SCH ×2 (09:01→21:00)
[2020-03-27] MEDS: CILOSTAZOL 50 MG TABLET (PLETAL) PO SCH (09:01)
[2020-03-27] MEDS: CHOLECALCIFEROL (VITAMIN D3) 2,000 UNIT TABLET PO SCH (09:02)
[2020-03-27] MEDS: MULTIVITAMINS TAB 1 TABLET PO SCH (09:02)
[2020-03-27] MEDS: SEVELAMER CARBONATE 800 MG TABLET PO SCH ×3 (09:02→18:00)
[2020-03-27] MEDS: METOPROLOL TARTRATE 25 MG TABLET PO SCH ×2 (09:02→21:00)
[2020-03-27] MEDS: CALCIUM ACETATE 667 MG CAP PO SCH ×3 (09:02→18:00)
[2020-03-27] MEDS: NEPHROVITE, (FOLIC ACID/VITAMIN B COMP W-C 1 TAB) PO SCH (09:08)
--- NOTE | 2020-03-27 09:30 | NUR ---
PT OFFERED AND TOOK AM MEDS.
--- NOTE | 2020-03-27 11:30 | NUR ---
PT REFUSED THE FSBS AND PM MEDS. WILL OFFER AGAIN LATER.
[2020-03-27 12:00] VITALS: BP_SYST 99
--- NOTE | 2020-03-27 13:00 | NUR ---
PT REFUSED FSBS AND MEDS.
--- NOTE | 2020-03-27 18:00 | NUR ---
PT REFUSED MEDICATIONS.
[2020-03-27 19:40] VITALS: BP_SYST 153
--- NOTE | 2020-03-27 19:40 | NUR ---
INITIAL NOTE PATIENT IS STABLE AND LAYING IN BED. NO S/S OF RESPIRATORY DISTRESS NOTED. CALL LIGHT IN REACH. BED IS LOCKED, AND AT THE LOWEST POSITION. PATIENT EDUCATED ON BED ALARM, PT REFUSED. FALL, SAFETY, ASPIRATION, AND RESPIRATORY PRECAUTIONS WILL BE IN PLACE THROUGHOUT THE SHIFT. .
[2020-03-27] MEDS: ATORVASTATIN 20 MG TABLET PO SCH (21:00)
--- NOTE | 2020-03-27 21:18 | NUR ---
PATIENT EDUCATED ON MEDICATION; PATIENT REFUSED. WILL CONTINUE TO EDUCATE.
[2020-03-28] VITALS: BP_SYST 135
--- NOTE | 2020-03-28 04:02 | NUR ---
PATIENT TOOK A SHOWER AT THIS TIME. PATIENT TOLERATED WELL. LINENS CHANGED. PATIENT REPOSITION FOR COMFORT. NO S/S OF RESPIRATORY DISTRESS NOTED. CALL LIGHT IN REACH.
[2020-03-28] MEDS: SODIUM BICARBONATE 650 MG TABLET PO SCH ×3 (06:00→22:30)
--- NOTE | 2020-03-28 06:53 | NUR ---
CLOSING NOTE PATIENT IS STABLE AND LAYING IN BED WATCHING TV. NO S/S OF RESPIRATORY DISTRESS NOTED. CALL LIGHT IN REACH. BED IS LOCKED, AND AT THE LOWEST POSITION. FALL, SAFETY, ASPIRATION, AND RESPIRATORY PRECAUTIONS HAS BEEN IN PLACE THROUGHOUT THE SHIFT. ALL NEED MET. WILL CONTINUE TO MONITOR UNTIL SBAR REPORT IS ENDORSED TO AM NURSE.
--- NOTE | 2020-03-28 07:55 | NUR ---
INITIAL NOTE RECEIVED PT IN BED, NO S/S OF DISTRESS OR SOB NOTED, PT HAS NO C/O PAIN AT THIS TIME, PT IN STABLE CONDITION. PT AAOX2, VERBAL, CONFUSED AT TIMES, PROVIDED PT WITH REALITY ORIENTATION. PT HAS NO IV CATHETER PRESENT, PT REFUSED. BED AT LOWEST POSITION, CALL LIGHT WITHIN REACH, WILL CONTINUE TO MONITOR PT FOR ANY CHANGES. FALL AND SAFETY PRECAUTIONS IN PLACE. PT VERY COMBATIVE AND YELLING, CURSING AND THREATENING TO HIT THE STAFF, REFUSED VITAL SIGNS AND ANY MEDS.
[2020-03-28] MEDS: CALCIUM ACETATE 667 MG CAP PO SCH ×3 (08:00→17:59)
[2020-03-28] MEDS: SEVELAMER CARBONATE 800 MG TABLET PO SCH ×3 (08:00→17:59)
[2020-03-28] MEDS: clonazePAM 0.5 MG TABLET PO SCH ×2 (08:46→20:45)
[2020-03-28] MEDS: LOSARTAN POTASSIUM 25 MG TABLET PO SCH (08:46)
[2020-03-28] MEDS: amLODIPine BESYLATE 10 MG TABLET PO SCH (08:47)
[2020-03-28] MEDS: NEPHROVITE, (FOLIC ACID/VITAMIN B COMP W-C 1 TAB) PO SCH (08:47)
[2020-03-28] MEDS: METOPROLOL TARTRATE 25 MG TABLET PO SCH ×2 (08:47→20:45)
[2020-03-28] MEDS: CILOSTAZOL 50 MG TABLET (PLETAL) PO SCH (08:47)
[2020-03-28] MEDS: CHOLECALCIFEROL (VITAMIN D3) 2,000 UNIT TABLET PO SCH (08:47)
[2020-03-28] MEDS: MULTIVITAMINS TAB 1 TABLET PO SCH (08:47)
[2020-03-28] MEDS: QUEtiapine FUMARATE 25 MG TABLET PO SCH ×2 (08:47→20:45)
--- NOTE | 2020-03-28 10:24 | NUR ---
MD DARIA STRONG, AWARE OF PATIENT'S CONDITION, MADE MD AWARE THAT PT REFUSED AM MEDS AND VITAL SIGNS ALONG WITH IV PLACEMENT.
--- NOTE | 2020-03-28 10:40 | NUR ---
ROUNDS PT IN BED, NO S/S OF DISTRESS OR SOB NOTED, PT HAS NO C/O PAIN AT THIS TIME, PT IN STABLE CONDITION. PT RESTING COMFORTABLY, WILL CONTINUE TO MONITOR PT FOR ANY CHANGES. PT CONTINUES TO REFUSE AM MEDS AND VITAL SIGNS, TRIED TO TALK TO PT ABOUT IMPORTANCE BUT CONTINUES TO REFUSE.
--- NOTE | 2020-03-28 12:10 | NUR ---
REFUSAL PT CONTINUES TO REFUSE VITAL SIGNS AND MEDS ALONG WITH VITAL SIGNS, WILL ATTEMPT LATER. Addendum: 03/28/20 at 1702 by Radha Casillas RN PT REFUSED BLOOD GLUCOSE CHECK
--- NOTE | 2020-03-28 12:20 | NUR ---
ROUNDS PT IN BED, NO S/S OF DISTRESS OR SOB NOTED, PT HAS NO C/O PAIN AT THIS TIME, PT IN STABLE CONDITION. PT RESTING COMFORTABLY, WILL CONTINUE TO MONITOR PT FOR ANY CHANGES.
--- NOTE | 2020-03-28 14:10 | NUR ---
REFUSAL PT CONTINUES TO REFUSE VITAL SIGNS AND MEDS ALONG, WILL ATTEMPT LATER.
[2020-03-28 16:45] VITALS: BP_SYST 142
--- NOTE | 2020-03-28 18:10 | NUR ---
CLOSING NOTE PT IN BED, NO S/S OF DISTRESS OR SOB NOTED, PT HAS NO C/O PAIN AT THIS TIME, PT IN STABLE CONDITION. PT AAOX2, VERBAL, CONFUSED AT TIMES, PROVIDED PT WITH REALITY ORIENTATION. PT HAS NO IV CATHETER PRESENT, PT REFUSED. BED AT LOWEST POSITION, CALL LIGHT WITHIN REACH, WILL ENDORSE CARE OF PT TO INCOMING NURSE. FALL AND SAFETY PRECAUTIONS IN PLACE. PT VERY COMBATIVE AND YELLING, CURSING AND THREATENING TO HIT THE STAFF, REFUSED VITAL SIGNS AND ANY MEDS ALONG WITH ACCUCHECK TODAY. PT DID GET VITAL SIGNS AT 1600.
--- NOTE | 2020-03-28 19:30 | NUR ---
INITIAL NOTES: RECEIVED REPORT FROM DAYSHIFT RN. PATIENT IS IN BED, WATCHING TV. NO ACUTE DISTRESS. EVEN, NONLABORED BREATHING ON ROOM AIR. PATIENT REFUSED IV SITE. BED IS LOCKED AT LOWEST POSITION. SIDE RAILS UP. CALL LIGHT IS WITH PATIENT. SAFETY AND FALL PRECAUTIONS IN PLACE. WILL CONTINUE WITH PLAN OF CARE.
[2020-03-28 20:00] VITALS: BP_SYST 167
[2020-03-28] MEDS: ATORVASTATIN 20 MG TABLET PO SCH (20:45)
--- NOTE | 2020-03-28 20:45 | NUR ---
REFUSED NIGHT TIME MEDS: PATIENTS BP IS 167/119. EDUCATED PATIENT ON INDICATIONS FOR SCHEDULED BP MEDS AND NIGHT TIME MEDICATIONS. PATIENT STATED "THE MACHINE IS NOT CORRECT." PATIENT REFUSED ALL MEDS AT THIS TIME.
[2020-03-29] VITALS: BP_SYST 212
--- NOTE | 2020-03-29 00:05 | NUR ---
ROUNDS: PATIENT IN BED, WATCHING TV. TOOK MIDNIGHT VITALS. BP IS 212/114. EDUCATED PATIENT ON INDICATIONS FOR BP MEDICATIONS. PATIENT STATED, "NO PILL WILL FIX ME." PATIENT REFUSED INDICATIONS FOR MEDICATION.
--- NOTE | 2020-03-29 00:52 | NUR ---
Rounds: Patient is awake, no acute distress. Even and unlabored breathing on room air. Refused to have midnight vital signs taken despite education. Call light with patient. Will continue monitoring. Addendum: 03/30/20 at 0336 by Tereso Howrad RN Disregard above note, wrong date.
[2020-03-29 02:00] VITALS: BP_SYST 173
[2020-03-29 04:34] VITALS: BP_SYST 169
--- NOTE | 2020-03-29 04:34 | NUR ---
ROUNDS/REFUSED PRN BP MEDICATIONS: PATIENT IS IN BED, RESTING. BLOOD PRESSURE TAKEN AT THIS TIME, 169/109. PATIENT REFUSED PRN BP MEDICATIONS. CHARGE NURSE AWARE. NO ACUTE DISTRESS. RESPIRATIONS ARE EVEN AND NONLABORED ON ROOM AIR. CALL LIGHT IS WITH PATIENT. SAFETY AND FALL PRECAUTIONS IN PLACE. WILL CONTINUE TO MONITOR.
[2020-03-29] MEDS: SODIUM BICARBONATE 650 MG TABLET PO SCH ×3 (06:00→22:00)
--- NOTE | 2020-03-29 06:39 | NUR ---
CLOSING NOTES/REFUSED MORNING MEDS: PATIENT IS IN BED, WATCHING TV. PATIENT REFUSED MORNING MEDICATIONS AND BEING EDUCATED ON INDICATIONS OF EACH MEDICINE. NO SIGNS OF ACUTE DISTRESS. EVEN, NONLABORED BREATHING ON ROOM AIR. PATIENT REFUSED IV SITE. ALL NEEDS MET. BED IS LOCKED AT LOWEST POSITION. SIDE RAILS UP X2. CALL LIGHT IS WITH PATIENT. SAFETY AND FALL PRECAUTIONS IN PLACE. WILL ENDORSE CARE TO DAYSHIFT RN.
[2020-03-29 08:00] VITALS: BP_SYST 150
[2020-03-29] MEDS: SEVELAMER CARBONATE 800 MG TABLET PO SCH ×3 (08:00→17:45)
[2020-03-29] MEDS: CALCIUM ACETATE 667 MG CAP PO SCH ×3 (08:00→17:44)
--- NOTE | 2020-03-29 08:00 | NUR ---
Opening Notes Patient is awake, alert and oriented x3. Patient is noted with intermittent agitation. Pt is ambulatory, needs assistance. Noted with a shuffling gait. No resp distress noted. Breathing is even and unlabored. Pt c/o pain at this time but does not want any pain meds at this time. Pt refused a body assessment at this time. Will try again later. Pt was given tater tots and sausage for breakfast, per request. All needs met. Safety and fall precautions in place. Bed in lowest position, locked. Will continue to monitor.
[2020-03-29] MEDS: MULTIVITAMINS TAB 1 TABLET PO SCH (09:00)
[2020-03-29] MEDS: EPOETIN ALFA 10,000 UNITS/ML VIAL SUBCUT SCH (09:00)
[2020-03-29] MEDS: NEPHROVITE, (FOLIC ACID/VITAMIN B COMP W-C 1 TAB) PO SCH (09:00)
[2020-03-29] MEDS: CHOLECALCIFEROL (VITAMIN D3) 2,000 UNIT TABLET PO SCH (09:00)
[2020-03-29] MEDS: LOSARTAN POTASSIUM 25 MG TABLET PO SCH (09:00)
[2020-03-29] MEDS: clonazePAM 0.5 MG TABLET PO SCH ×2 (09:00→21:00)
[2020-03-29] MEDS: QUEtiapine FUMARATE 25 MG TABLET PO SCH ×2 (09:00→21:00)
[2020-03-29] MEDS: CILOSTAZOL 50 MG TABLET (PLETAL) PO SCH (09:00)
[2020-03-29] MEDS: METOPROLOL TARTRATE 25 MG TABLET PO SCH ×2 (09:00→21:00)
[2020-03-29] MEDS: amLODIPine BESYLATE 10 MG TABLET PO SCH (09:00)
--- NOTE | 2020-03-29 09:45 | NUR ---
Refused Medications Patient continues to refuse medications at this time. Per patient, "I dont want it and I dont need it." Nurse educated pt on benefits of medications, pt refused x3. Will try again later.
--- NOTE | 2020-03-29 11:30 | NUR ---
Refused Blood Sugar Check/Vitals Pt refused BS check and vital signs. Per patient, "No, go away." Will continue to monitor.
--- NOTE | 2020-03-29 12:00 | NUR ---
Notes Patient is asleep in bed, lunch at bedside. No resp distress, no signs of pain at this time. Will continue to monitor.
--- NOTE | 2020-03-29 13:07 | NUR ---
Discharge Planning: DCP faxed pt referral to [facility]. (f [phone]) DCP to follow up
--- NOTE | 2020-03-29 14:00 | NUR ---
Notes/Refused Meds Patient is sleeping at this time. No resp distress ntoed. Breathing is even and unlabored. Pt still refuses medications at this time. Will continue to monitor.
--- NOTE | 2020-03-29 15:30 | NUR ---
Refused Dialysis Patient is refusing dialysis session, MD Ray made aware.
[2020-03-29 16:00] VITALS: BP_SYST 138
--- NOTE | 2020-03-29 16:10 | NUR ---
Spoke w/ Jania SimpsonPyfynl-aazgdfisggm-cyimjnehl on going difficulty w/ scheduling out pt HD-She will have her fishery division chief- Cara Michael [phone] Chao to see if they can work out an agreement for the patient to go to [facility]
--- NOTE | 2020-03-29 16:30 | NUR ---
Agreed to Dialysis Pt agreed to dialysis session, tolerating well. No resp distress noted. Breathing is even and unlabored. Will continue to monitor.
[2020-03-29] MEDS ORDERED: HEPARIN SODIUM,PORCINE 5,000 UNITS/ML VIAL SUBCUT ONE ×2 (17:00→17:45)
--- NOTE | 2020-03-29 17:30 | NUR ---
Blood Sugar/Refused Insulin and Meds Patients BS was noted at 159 mg/dL. Per sliding scale, scheduled to administer 2 units of Lispro. Pt is refusing insulin and meds at this time. Will continue to monitor.
--- NOTE | 2020-03-29 18:19 | NUR ---
Closing Notes Patient is laying in bed, resting and still receiving dialysis. No resp distress noted. Breathing is even and unlabored. Pt denies any pain at this time. No IV access at this time. Dinner is at bedside. All needs met. Safety and fall precautions in place. Bed in lowest position, locked. Will continue to monitor.
--- NOTE | 2020-03-29 18:55 | NUR ---
Dialysis Complete Dialysis completed, 2 liters out. Pts BP is stable at this time: 140/85. Will continue to monitor.
--- NOTE | 2020-03-29 19:42 | NUR ---
Closing note: Received report from koby RN. Patient is awake in bed. No acute distress. Tolerating room air, even and unlabored breathing. No IV site, MD aware. Right subclavian permacath dressing c/d/i. Call light with patient. Safety, fall precautions in place. Will continue with plan of care.
[2020-03-29] MEDS: ATORVASTATIN 20 MG TABLET PO SCH (21:00)
--- NOTE | 2020-03-29 21:59 | NUR ---
Refused medications: Patient is refusing all care. Patient became hostile after this RN provided education regarding importance of checking routine vital signs and taking scheduled medications. Call light is with patient. Will continue to monitor.
--- NOTE | 2020-03-30 00:52 | NUR ---
Rounds: Patient is awake, no acute distress. Even and unlabored breathing on room air. Refused to have midnight vital signs taken despite education. Call light with patient. Will continue monitoring.
--- NOTE | 2020-03-30 03:39 | NUR ---
Rounds: Patient is awake, no acute distress, even and unlabored breathing on room air. Provided patient with 2 sandwiches per request. Call light with patient. Will continue monitoring.
[2020-03-30] MEDS: SODIUM BICARBONATE 650 MG TABLET PO SCH ×3 (06:00→21:02)
--- NOTE | 2020-03-30 06:41 | NUR ---
Closing note: Patient is resting comfortably in bed. No acute distress. Tolerating room air, even and unlabored breathing. No IV site, MD aware. Right subclavian permacath dressing c/d/i. Patient has been uncooperative with care throughout shift. All needs met. Safety, fall precautions in place. Will endorse care to dayshift RN.
[2020-03-30 08:00] VITALS: BP_SYST 140
[2020-03-30] MEDS: CALCIUM ACETATE 667 MG CAP PO SCH ×3 (08:00→17:04)
[2020-03-30] MEDS: SEVELAMER CARBONATE 800 MG TABLET PO SCH ×3 (08:00→17:04)
--- NOTE | 2020-03-30 08:15 | NUR ---
Opening Notes Patient is laying in bed, resting at this time. No resp distress noted. Breathing is even and unlabored. Pt denies any pain at this time. No IV access at this time. Pt refused a body assessment and is also refusing medications. Patient only allowed to take morning vital signs. Per patient, "I dont want to take my meds, makes me sleepy. And I dont need them." Will attempt to administer later in shift. Pt is eating breakfast at this time, ate 100% of meal. Pt denies any NVD, cough or abnormal bleeding. All needs met. Safety and fall precautions in place. Bed in lowest position, locked. Will continue to monitor.
--- NOTE | 2020-03-30 08:56 | NUR ---
Med Pass/Refusing Medications Pt continues to refuse scheduled medications. Pt becomes agitated during education of medicine. Will notify MD. Will continue to monitor. Addendum: 03/30/20 at 1040 by Rosa Maria Buckner RN Notified MD Ray and MD Delaney of patients refusal of med pass.
[2020-03-30] MEDS: LOSARTAN POTASSIUM 25 MG TABLET PO SCH (09:00)
[2020-03-30] MEDS: NEPHROVITE, (FOLIC ACID/VITAMIN B COMP W-C 1 TAB) PO SCH (09:00)
[2020-03-30] MEDS: MULTIVITAMINS TAB 1 TABLET PO SCH (09:00)
[2020-03-30] MEDS: METOPROLOL TARTRATE 25 MG TABLET PO SCH ×2 (09:00→20:58)
[2020-03-30] MEDS: amLODIPine BESYLATE 10 MG TABLET PO SCH (09:00)
[2020-03-30] MEDS: clonazePAM 0.5 MG TABLET PO SCH ×2 (09:00→20:58)
[2020-03-30] MEDS: CHOLECALCIFEROL (VITAMIN D3) 2,000 UNIT TABLET PO SCH (09:00)
[2020-03-30] MEDS: CILOSTAZOL 50 MG TABLET (PLETAL) PO SCH (09:00)
[2020-03-30] MEDS: QUEtiapine FUMARATE 25 MG TABLET PO SCH ×2 (09:00→20:59)
--- NOTE | 2020-03-30 10:45 | NUR ---
Notes Patient is sleeping at this time. No resp distress noted. Breathing is even and unlabored. No signs of pain. Will continue to monitor.
--- NOTE | 2020-03-30 12:45 | NUR ---
Notes Patient is sleeping in bed at this time. No resp distress noted. Breathing is even and unlabored. Lunch is at bedside. Denies any pain at this time. Will continue to monitor.
--- NOTE | 2020-03-30 14:45 | NUR ---
Notes Patient is laying in bed and watching TV. Denies any pain at this time. No resp distress noted. No needs at this time. Will continue to monitor.
--- NOTE | 2020-03-30 17:30 | NUR ---
Med Pass/Refusing Medications and Blood sugar Pt continues to refuse scheduled medications and blood sugar check. Pt becomes agitated during education of medicine. Will continue to monitor.
--- NOTE | 2020-03-30 19:01 | NUR ---
Closing Notes Patient is laying in bed, resting and watching TV. No resp distress noted. Breathing is even and unlabored. Pt denies any pain at this time. No IV access at this time. Dinner is at bedside. All needs met. Safety and fall precautions in place. Bed in lowest position, locked. Will continue to monitor.
[2020-03-30] MEDS: ATORVASTATIN 20 MG TABLET PO SCH (20:58)
[2020-03-31] MEDS: SODIUM BICARBONATE 650 MG TABLET PO SCH ×3 (06:00→22:00)
--- NOTE | 2020-03-31 07:24 | NUR ---
Handoff with day team nurse Deysi Thorep RN. Reyes Wesley RN
--- NOTE | 2020-03-31 07:25 | NUR ---
AM ROUNDS: PATIENT ON THE BED,AWAKE,ALERT AND ORIENTED X4. RIGHT UPPER CHEST,DRESSING CLEAN AND DRY, FOR HD ACCESS.NO IV ACCESS,PT REFUSE,MD AWARE. CALL LIGHT WITH IN REACH. BED LOCKED AT LOWEST POSITION.NO DISTRESS.
[2020-03-31] MEDS: SEVELAMER CARBONATE 800 MG TABLET PO SCH ×3 (08:00→17:45)
[2020-03-31] MEDS: CALCIUM ACETATE 667 MG CAP PO SCH ×3 (08:00→17:45)
--- NOTE | 2020-03-31 08:05 | NUR ---
RENAL ROUNDS: PATIENT REFUSED HIS RENAL DIET AND INFORMED DR DURAN,WITH ORDERS OKAY TO BE ON REGULAR DIET PER PT'S REQUEST.
--- NOTE | 2020-03-31 08:15 | NUR ---
REFUSE VITAL SIGNS: PT REFUSED VITAL SIGNS TAKEN.
--- NOTE | 2020-03-31 08:20 | NUR ---
REFUSE MEDS/HEMODIALYSIS: PATIENT REFUSED MEDICATIONS AND HEMODIALYSIS. AWARE.
[2020-03-31] MEDS: EPOETIN ALFA 10,000 UNITS/ML VIAL SUBCUT SCH (09:00)
[2020-03-31] MEDS: LOSARTAN POTASSIUM 25 MG TABLET PO SCH (09:00)
[2020-03-31] MEDS: METOPROLOL TARTRATE 25 MG TABLET PO SCH ×2 (09:00→21:00)
[2020-03-31] MEDS: amLODIPine BESYLATE 10 MG TABLET PO SCH (09:00)
[2020-03-31] MEDS: QUEtiapine FUMARATE 25 MG TABLET PO SCH ×2 (09:00→21:00)
[2020-03-31] MEDS: NEPHROVITE, (FOLIC ACID/VITAMIN B COMP W-C 1 TAB) PO SCH (09:00)
[2020-03-31] MEDS: clonazePAM 0.5 MG TABLET PO SCH ×2 (09:00→21:00)
[2020-03-31] MEDS: CILOSTAZOL 50 MG TABLET (PLETAL) PO SCH (09:00)
[2020-03-31] MEDS: CHOLECALCIFEROL (VITAMIN D3) 2,000 UNIT TABLET PO SCH (09:00)
[2020-03-31] MEDS: MULTIVITAMINS TAB 1 TABLET PO SCH (09:00)
--- NOTE | 2020-03-31 12:15 | NUR ---
CM Note: Met with pt per his request: the pt was upset wandered to [facility]/nursing station. He demanded to go back to his halfway today. He yelled and used foul language. He demanded to speak with his conservator. Called Jania # [phone] for the pt, he lvm for her to call back. Addendum: 03/31/20 at 1248 by Alethea Corrales RN Patient spoke with Jania on phone, mood was calm during and after s/w Jania. Pt refused HD today.
--- NOTE | 2020-03-31 12:48 | NUR ---
CM note: Conservator: f/u with Cara and Jania/conservator re Arbitration agreement with [facility]. Both had no answer. Said Salo, the [employer] is handling the case. Earnest off# [phone], Cell# [phone]. >> S/w dr. Delaney: said he spoke with Salo who would call [facility] to complete the arbitration agreement. I called Salo , he confirmed he already contacted Dwayne at [facility] and the agreement signing is in progress. Said , he is waiting for [facility] to fax the arbitration to him today. He will call me back once the process is completed. Then the pt can return back to [facility]. I requested Dwayne /Alejandra at [facility] # to call back to confirm the the accepting , arbitration agreement completion. CM to f/u.
--- NOTE | 2020-03-31 13:37 | NUR ---
Spoke w/ Sonia Morales at [facility] [phone]-corporate MD denied patient for any [facility] facility because he had been denied at 3 other facilities.
--- NOTE | 2020-03-31 14:54 | NUR ---
Discharge Planning: JOSEF followed up with Padmini at [facility]. (f [phone] p [phone] opt #1 then opt #4) per Padmini the patient looks good clinically and financially. Padmini is waiting for [facility] to respond to referral. JOSEF made CM aware. JOSEF will follow up.
--- NOTE | 2020-03-31 15:47 | NUR ---
NEW ORDER: SPOKE WITH DR DURAN WITH ORDERS,FOR HEPATITIS B SURFACE ANTIBODY.
--- NOTE | 2020-03-31 18:36 | NUR ---
Closing Notes: Patient resting. Dinner tray was served. Safety measures rendered. No acute distress.
[2020-03-31] MEDS: ATORVASTATIN 20 MG TABLET PO SCH (21:00)
[2020-04-01] MEDS: SODIUM BICARBONATE 650 MG TABLET PO SCH ×3 (06:00→22:00)
--- NOTE | 2020-04-01 07:21 | NUR ---
Handoff with Deysi Roche RN. Reyes Wesley RN
--- NOTE | 2020-04-01 07:30 | NUR ---
AM ROUNDS: PATIENT AWAKE LYING ON THE BED.UPDATES GIVEN BY NIGHT NURSE KRUPA. NO IV ACCESS,MD AWARE.RIGHT CHEST FOR HD ACCESS,DRESSING CLEAN AND DRY. CALL LIGHT WITH IN REACH.BED LOCKED AT LOWEST POSITION.CONTINUE TO MONITOR.
[2020-04-01] MEDS: CALCIUM ACETATE 667 MG CAP PO SCH ×3 (08:00→18:00)
[2020-04-01] MEDS: SEVELAMER CARBONATE 800 MG TABLET PO SCH ×3 (08:00→18:00)
[2020-04-01] MEDS: LOSARTAN POTASSIUM 25 MG TABLET PO SCH (08:35)
[2020-04-01] MEDS: CILOSTAZOL 50 MG TABLET (PLETAL) PO SCH (08:36)
[2020-04-01] MEDS: amLODIPine BESYLATE 10 MG TABLET PO SCH (08:36)
[2020-04-01] MEDS: MULTIVITAMINS TAB 1 TABLET PO SCH (08:36)
[2020-04-01] MEDS: clonazePAM 0.5 MG TABLET PO SCH ×2 (08:36→21:00)
[2020-04-01] MEDS: NEPHROVITE, (FOLIC ACID/VITAMIN B COMP W-C 1 TAB) PO SCH (08:36)
[2020-04-01] MEDS: METOPROLOL TARTRATE 25 MG TABLET PO SCH ×2 (08:36→21:00)
[2020-04-01] MEDS: CHOLECALCIFEROL (VITAMIN D3) 2,000 UNIT TABLET PO SCH (08:37)
[2020-04-01] MEDS: QUEtiapine FUMARATE 25 MG TABLET PO SCH ×2 (08:37→21:00)
--- NOTE | 2020-04-01 08:37 | NUR ---
Refuse Vital signs/Medications: Patient refused vital signs taken this morning and po medications.Education given.
--- NOTE | 2020-04-01 12:00 | NUR ---
Refuse vital signs/meds: Patient refused vital signs to be taken and oral meds. Md aware.Education given as well,non compliant.
--- NOTE | 2020-04-01 12:45 | NUR ---
Discharge Planning: JOSEF followed up with Padmini at [facility]. (f [phone] p [phone] opt #1 then opt #4) per Padmini the patient looks good clinically and financially. Padmini is waiting for [facility] to respond to referral. JOSEF made CM aware. JOSEF will follow up. Addendum: 04/01/20 at 1252 by Lorenza BECERRA JOSEF faxed updated clinicals to Declan Bridges (f [phone] p [phone]) JOSEF to follow up.
[2020-04-01 13:25] VITALS: BP_SYST 140
--- NOTE | 2020-04-01 16:27 | NUR ---
RN ROUNDS: RESTING. NO PROBLEM.
--- NOTE | 2020-04-01 17:53 | NUR ---
Nutrition F/U RD reviewed pt's current EMR record including diet Hx, physician notes, nursing notes, pertinent labs/meds/procedures, care trends, and care activity. Admission Dx: Renal failure, anemia PMH: HTN, DM, anemia, ESRD, psych per physician notes Pt also found w/ severe malnutrition and uremia per physician notes SARS-CoV-2 Ag (Rapid) Negative 03/11 Current Diet Order/Nutrition Support: Regular x1 day Subjective Info: Per EMR review, pt continues w/ good appetite, generally eating 75-100% of meals since last RD F/U 03/25. Awaiting placement w/ dialysis center per physician notes. Diet order was liberalized by washing machine assembler yesterday per EMR review. Current diet is adequate/appropriate to meet nutritional needs. Pertinent Medications: Reviewed Pertinent Labs: BUN 82 H, CRE 11.12 H, BG 157 H, ALB 3.2 L, H/H 9.4 L/27.4 L, POC BG 142 WNL, K 5.6 H Skin Integrity Comment: Maxi scale: 19; no skin issues noted Current % PO Good Estimated Energy Expenditure (kcals/day) 6785-0195 kcal/day (30-35 kcal/kg Adj IBW for ESRD on HD) Estimated Protein Required (g/day) 90-113 gm/day (1.2-1.5 gm/kg Adj IBW for ESRD on HD) Estimated Fluid Required (l/day) Per physician d/t ESRD Problem/Etiology/Signs/Symptoms Altered nutrition-related labs related to endocrine and renal dysfunction as evidenced by abnormal BG, POC BG, BUN, and CRE lab values. *ongoing Expected Outcomes/Goals - Monitor appetite and PO intakes w/ goal of pt meeting at least 80% of estimated nutritional needs, labs trending WNL, normal GI function, and skin integrity/wt maintenance Dietitian Recommendations * Recommend continuing regular diet Follow Up Low Risk: F/U in 7 days
--- NOTE | 2020-04-01 17:57 | NUR ---
Dietitian Recommendations * Recommend continuing regular diet LP, RD Please refer to Nutrition F/U for details.
--- NOTE | 2020-04-01 19:15 | NUR ---
END OF SHIFT: ENDORSED TO NIGHT NURSE KRUPA,PATIENT IN STABLE CONDITION.STILL NON COMPLIANT WITH MEDS,BLOOD SUGAR CHECKING AND VITAL SIGNS.
[2020-04-01] MEDS: ATORVASTATIN 20 MG TABLET PO SCH (21:00)
[2020-04-02] MEDS: SODIUM BICARBONATE 650 MG TABLET PO SCH ×2 (05:36→14:00)
--- NOTE | 2020-04-02 07:22 | NUR ---
Handoff with Delia Sapp RN. Reyes Wesley RN
[2020-04-02] MEDS: CALCIUM ACETATE 667 MG CAP PO SCH ×3 (08:00→18:00)
[2020-04-02] MEDS: SEVELAMER CARBONATE 800 MG TABLET PO SCH ×3 (08:00→18:00)
--- NOTE | 2020-04-02 08:35 | NUR ---
Report Received: Report received from [facility].
--- NOTE | 2020-04-02 08:43 | NUR ---
AM ROUNDS: Patient received in bed, awake, alert, confused. Patient is ambulatory. No IV access, Right Chest Permacath present. Patient refused all assessments. Patient also refused vital signs assessment. Explained that the nature and purpose of VS/assessment, as he has blood pressure medications. Patient still refused. Offered 0800 medications and patient refused.
[2020-04-02] MEDS: MULTIVITAMINS TAB 1 TABLET PO SCH (09:00)
[2020-04-02] MEDS: LOSARTAN POTASSIUM 25 MG TABLET PO SCH (09:00)
[2020-04-02] MEDS: EPOETIN ALFA 10,000 UNITS/ML VIAL SUBCUT SCH (09:00)
[2020-04-02] MEDS: QUEtiapine FUMARATE 25 MG TABLET PO SCH (09:00)
[2020-04-02] MEDS: clonazePAM 0.5 MG TABLET PO SCH (09:00)
[2020-04-02] MEDS: CILOSTAZOL 50 MG TABLET (PLETAL) PO SCH (09:00)
[2020-04-02] MEDS: NEPHROVITE, (FOLIC ACID/VITAMIN B COMP W-C 1 TAB) PO SCH (09:00)
[2020-04-02] MEDS: amLODIPine BESYLATE 10 MG TABLET PO SCH ×2 (09:00→14:33)
[2020-04-02] MEDS: METOPROLOL TARTRATE 25 MG TABLET PO SCH ×2 (09:00→14:32)
--- NOTE | 2020-04-02 09:45 | NUR ---
ProCrit not in refrigerator: ProCrit not in refrigerator, pharmacy called.
--- NOTE | 2020-04-02 10:20 | NUR ---
Dialysis Nurse Arrived: Lauryn upholstery auto trimmer arrived. Labs, orders, VS and 2 L NS provided.
[2020-04-02] MEDS: CHOLECALCIFEROL (VITAMIN D3) 2,000 UNIT TABLET PO SCH (10:41)
[2020-04-02] MEDS ORDERED: ALBUMIN HUMAN 25% 200 ML IV ONE (11:15)
--- NOTE | 2020-04-02 11:29 | NUR ---
opening notes assumed care from Elliot [facility]. Currently ongoing hemodialysis. Blood pressure was 70/40. received orders from Dr maravilla for 200 ml 25% albumin iv with dialysis. BP improved 124/74 after albumin was administered
[2020-04-02 12:00] VITALS: BP_SYST 170
--- NOTE | 2020-04-02 12:48 | NUR ---
Rounds patient still ongoing hemodialysis. patient awake talking to dialysis nurse
[2020-04-02] MEDS ORDERED: ALTEPLASE 2 MG VIAL MC ONE (13:45)
[2020-04-02 14:04] LABS: ALBUMIN 4.6 g/dL (3.4-4.8); CALCIUM 8.9 mg/dL (8.4-11.0); CREATININE 5.77 mg/dL (0.55-1.30); POTASSIUM 3.2 mmol/L (3.5-5.1); TOTAL BILIRUBIN 0.3 mg/dL (0.0-1.0)
[2020-04-02 14:06] LABS: BASOPHILS % (AUTO) 0.6 % (0.0-2.0); EOSINOPHILS # (AUTO) 0.2 K/uL (0.0-0.4); EOSINOPHILS % (AUTO) 2.8 % (0.0-4.0); HEMATOCRIT 30.7 % (36-54); HEMOGLOBIN 10.6 g/dL (14.0-18.0); LYMPHOCYTES % (AUTO) 29.5 % (20.5-51.5); MEAN CORPUSCULAR HEMOGLOBIN 32 pg (27-31); MEAN CORPUSCULAR HGB CONC 35 % (32-36); MEAN CORPUSCULAR VOLUME 91 fL (79.0-98.0); MONOCYTES # (AUTO) 0.5 K/uL (0.0-1.0); MONOCYTES % (AUTO) 7.9 % (1.7-9.3); NEUTROPHILS # (AUTO) 3.9 K/uL (1.8-7.7); NEUTROPHILS % (AUTO) 59.2 % (40.0-70.0); PLATELET COUNT (AUTO) 261 K/uL (130-430); RED BLOOD CELL COUNT(AUTO) 3.38 MIL/uL (4.2-6.2); RED CELL DISTRIBUTION WIDTH 16.2 % (9.0-15.0); WHITE BLOOD COUNT (AUTO) 6.6 K/uL (4.8-10.8)
--- NOTE | 2020-04-02 14:13 | NUR ---
Discharge Planning: DCP spoke to Roselyn at [facility] (f [phone] p [phone]) patient will go to station 6, transportation arranged with [facility] ([phone]) 5:00pm BLS. MAKIP made Roselyn at [facility] patient will go [facility] in [place] [phone] TT 1:30pm, [facility] had drug abuse social worker arrange transportation. DCP made CM and nurse aware. Patient packet taken to nurse station.
--- NOTE | 2020-04-02 15:05 | NUR ---
DISCHARGE ARRANGEMENT WERE MADE RE OUT PATIENT DIALYSIS, PATIENT IS LEAVING AT 5PM TODAY TO [facility] . PATIENT MADE AWARE. CALLED AND HECTOR TATE DEPUTY SHAYNE YUEN FROM [employer] ABOUT TRANSFER. DIALYSIS COMPLETE AT THIS TIME, PATIENT AGREED TO TAKE BLOOD PRESSURE MEDICATIONS
[2020-04-02 16:37] VITALS: BP_SYST 143
--- NOTE | 2020-04-02 18:00 | NUR ---
CLOSING NOTES REPORT GIVEN TO TRUPTI ARCHULETA. AMBULANCE WILL BE LATE FOR PICKUP AT 1830. PATIENT REMAINED COMFORT
[2020-04-02] MEDS: INSULIN LISPRO SLIDING SCALE 100 UNITS/ML VIAL (humaLOG) SUBCUT PRN (18:11)
--- NOTE | 2020-04-02 19:00 | NUR ---
OPENING NOTE BEDSIDE REPORT RECEIVED FROM DAYSHIFT NURSE. PATIENT RECEIVED LYING IN BED AWAKE, NO S/S OF ACUTE DISTRESS NOTED. BREATHING EVEN AND UNLABORED ON ROOM AIR, DENIES ANY PAIN. PATIENT FINISHING UP DINNER. CALL LIGHT WITH PATIENT. BED IS LOCKED AND AT LOWEST POSITION. WILL CONTINUE TO MONITOR.
--- NOTE | 2020-04-02 19:50 | NUR ---
DISCHARGE REPORT GIVEN TO EMT, BEAR, OF [facility]. PATIENT IN BED, AWAKE, NO S/S OF ACUTE DISTRESS, PATIENT DENIES PAIN. BREATHING EVEN AND UNLABORED. ALL NEEDS MET. NO IV SITE. PATIENT REFUSES TO HAVE WRIST ID BAND REMOVED, CHARGE NURSE MADE AWARE. PATIENT TAKEN OUT OF UNIT VIA GURNEY BY supply chain buyer OF [facility].
== END 2020-04-02 19:50 | DRG 640 ==
LOC: SED 11:50 → STU 13:55 → SMU 03-20 10:36
PROVIDERS: ADMIT Internal Medicine; ATTEND Internal Medicine Hospice and Palliative Medicine
PROC: 5A1D70Z Performance of Urinary Filtration, Intermittent, Less than 6 Hours Per Day (ICD-10-PCS; 2020-03-11)
PROC: 30233N1 Transfusion of Nonautologous Red Blood Cells into Peripheral Vein, Percutaneous Approach (ICD-10-PCS; principal; 2020-03-12)
PROC: 5A1D70Z Performance of Urinary Filtration, Intermittent, Less than 6 Hours Per Day (ICD-10-PCS; 2020-03-13)
PROC: 5A1D70Z Performance of Urinary Filtration, Intermittent, Less than 6 Hours Per Day (ICD-10-PCS; 2020-03-15)
PROC: 5A1D70Z Performance of Urinary Filtration, Intermittent, Less than 6 Hours Per Day (ICD-10-PCS; 2020-03-17)
PROC: 5A1D70Z Performance of Urinary Filtration, Intermittent, Less than 6 Hours Per Day (ICD-10-PCS; 2020-03-22)
PROC: 5A1D70Z Performance of Urinary Filtration, Intermittent, Less than 6 Hours Per Day (ICD-10-PCS; 2020-03-24)
PROC: 5A1D70Z Performance of Urinary Filtration, Intermittent, Less than 6 Hours Per Day (ICD-10-PCS; 2020-03-26)
PROC: 5A1D70Z Performance of Urinary Filtration, Intermittent, Less than 6 Hours Per Day (ICD-10-PCS; 2020-03-30)
PROC: 5A1D70Z Performance of Urinary Filtration, Intermittent, Less than 6 Hours Per Day (ICD-10-PCS; 2020-03-31)
DX: E87.5 Hyperkalemia (principal); N18.6 End stage renal disease; E43 Unspecified severe protein-calorie malnutrition; I12.0 Hypertensive chronic kidney disease with stage 5 chronic kidney disease or end stage renal disease; E11.22 Type 2 diabetes mellitus with diabetic chronic kidney disease; D64.9 Anemia, unspecified; F20.9 Schizophrenia, unspecified; Z20.828 Contact with and (suspected) exposure to other viral communicable diseases; E78.5 Hyperlipidemia, unspecified; Z91.15 Patient's noncompliance with renal dialysis; Z99.2 Dependence on renal dialysis; Z68.28 Body mass index [BMI] 28.0-28.9, adult; Z88.8 Allergy status to other drugs, medicaments and biological substances; Z79.899 Other long term (current) drug therapy
CPT/HCPCS: 36415; 36430; 71045; 80053; 82962; 84484; 85025; 86886; 86900; 86901; 86920; 87081; 90935; 90937; 93005; 99285; G0378; J0885; J1644; J2916; J2997; J7030; J7050; P9021